=== PATIENT | male | born 1965 | race Caucasian/White ===

== ENCOUNTER 2020-03-23 18:46 | Inpatient (IN) | payer OTHER ==
[~2020-03-23] VITALS: Ht 182.9 cm; Wt 101.6 kg
[2020-03-23 21:56] VITALS: BP 129/95
[2020-03-23 22:15] VITALS: BP 129/95
--- NOTE | 2020-03-23 22:15 | NUR ---
ETHANOL OPERATIONS MANAGERWORK ORDER SORTING CLERK NOTES PATIENT DIRECTLY ADMITTED FROM [facility] FOR CARDIAC CATH PROCEDURE IN AM. PATIENT'S RAPID COVID TEST NEGATIVE; RESULTS FOUND IN CHART. PATIENT ARRIVED VIA GURNEY IN STABLE CONDITION. A/OX4. ABLE TO VERBALIZE NEEDS. TELE MONITOR READING NSR, HEART RATE 93. IV PRESENT ON LEFT HAND, SIZE 20, INTACT & PATENT, HEP LOCKED. STABLE ON RA. PATIENT DENIES PAIN OR SOB; BREATHING IS EVEN AND UNLABORED. NON-PITTING EDEMA NOTED ON PATIENT BILATERAL LOWER LEGS. BELONGINGS REVIEWED WITH PATIENT; POCKET KNIFE CONFISCATED AND PLACED IN SAFE. HOME MEDS RECONCILED AND WILL BE GIVEN TO PHARMACY IN THE AM. MRSA SWAB COMPLETED. CENTRAL OFFICE MECHANIC BOBBIN DISKER, YVAN HURLEY, MADE AWARE OF ADMISSION; AWAITING ORDERS. SAFETY MEASURES IN PLACE AND PATIENT'S NEEDS MET. WILL CONTINUE TO MONITOR.
[2020-03-23] MEDS: LOSARTAN POTASSIUM 25 MG TABLET PO SCH (23:00)
[2020-03-23] MEDS: CARVEDILOL 6.25 MG TABLET PO SCH (23:00)
[2020-03-23] MEDS ORDERED: FUROSEMIDE 40 MG/4 ML VIAL IV ONE (23:00)
[2020-03-23] MEDS ORDERED: ZOLPIDEM TARTRATE 5 MG TABLET PO PRN (23:30)
[2020-03-23] MEDS ORDERED: MAG HYDROX/AL HYDROX/SIMETH 30 ML UDC PO PRN (23:30)
[2020-03-23] MEDS ORDERED: MAGNESIUM HYDROXIDE 30 ML UDC PO PRN (23:30)
[2020-03-23] MEDS ORDERED: MORPHINE SULFATE INJ 2 MG/ML DISP.SYRIN IV PRN (23:30)
[2020-03-23] MEDS ORDERED: Z GUARD REMEDY 2 OZ OINT TP PRN (23:30)
[2020-03-23] MEDS ORDERED: ACETAMINOPHEN 325 MG TABLET PO PRN (23:30)
[2020-03-23] MEDS ORDERED: ONDANSETRON HCL/PF 4 MG/2 ML VIAL IVP PRN (23:30)
[2020-03-24] VITALS (11 sets, daily range): BP systolic 100–146; BP diastolic 65–101
[2020-03-24] MEDS ORDERED: ASPI-1169 PO (03:36)
[2020-03-24] MEDS ORDERED: FURO40TA5 PO (03:36)
[2020-03-24] MEDS ORDERED: LOSA25TA27 PO (03:36)
[2020-03-24] MEDS ORDERED: RIVA10TA PO (03:36)
[2020-03-24] MEDS ORDERED: NITR0.4T48 SL (03:36)
[2020-03-24] MEDS ORDERED: SPIR25TA6 PO (03:36)
[2020-03-24] MEDS ORDERED: CARV6.252 PO (03:36)
[2020-03-24 04:41] LABS: BASOPHILS # (AUTO) 0.1 /CMM (0.0-0.2); BASOPHILS % (AUTO) 0.9 % (0.0-2.0); EOSINOPHILS % (AUTO) 2.5 % (0.0-6.0); HEMATOCRIT 45 % (39-51); HEMOGLOBIN 14.6 g/dL (13.5-17.5); LYMPHOCYTES # (AUTO) 2.6 /CMM (0.8-4.8); LYMPHOCYTES % (AUTO) 41.7 % (20.0-44.0); MEAN CORPUSCULAR HGB CONC 32 g/dl (31.0-36.0); MEAN CORPUSCULAR VOLUME 87 fL (80-96); MONOCYTES # (AUTO) 0.8 /CMM (0.1-1.30); MONOCYTES % (AUTO) 12.3 % (2.0-12.0); NEUTROPHILS # (AUTO) 2.7 /CMM (1.8-8.9); NEUTROPHILS % (AUTO) 42.6 % (43.0-81.0); PLATELET COUNT (AUTO) 338 /CMM (150-450); RED BLOOD CELL COUNT(AUTO) 5.23 MIL/uL (4.5-6.0); WHITE BLOOD COUNT (AUTO) 6.3 K/uL (4.3-11.0)
[2020-03-24 04:50] LABS: CALCIUM, SERUM 8.2 mg/dL (8.5-10.1); CREATININE 1.2 mg/dL (0.6-1.3); MAGNESIUM 1.8 mg/dL (1.8-2.4); PHOSPHORUS 4.7 mg/dL (2.5-4.9); POTASSIUM 3.5 mmol/L (3.5-5.1)
[2020-03-24] MEDS ORDERED: IODIXANOL 320MG/ML 100 ML IV ONE (05:53)
[2020-03-24] MEDS ORDERED: IV NS 0.9% 1,000 ML ONE (05:53)
[2020-03-24] MEDS ORDERED: IV NS 0.9% 50 ML IV ONE (05:53)
[2020-03-24] MEDS ORDERED: NITROGLYCERIN ICAR 1,000 MCG/10 ML VIAL ICAR ONE (05:54)
[2020-03-24] MEDS ORDERED: VERAPAMIL HCL IV 5 MG/2 ML VIAL ONE (05:54)
[2020-03-24] MEDS ORDERED: IV SET PRIMARY 1 EA INFUS.SET MC ONE (05:58)
[2020-03-24] MEDS ORDERED: LIDOCAINE HCL/PF 1% 30 ML SDV ONE (06:00)
--- NOTE | 2020-03-24 06:15 | NUR ---
TRUCK DOCK MATERIAL MOVER NOTES PATIENT SENT TO [facility] FOR PROCEDURE. CONSENT FORMS VERIFIED
[2020-03-24] MEDS ORDERED: MIDAZOLAM HCL 2 MG/2ML VIAL ONE (06:41)
[2020-03-24] MEDS ORDERED: FENTANYL PF 100MCG/2ML AMPUL ONE (06:41)
[2020-03-24] MEDS ORDERED: HEPARIN SODIUM, PORCINE 1,000 UNIT/ML VIAL ONE (06:47)
--- NOTE | 2020-03-24 07:16 | NUR ---
COMPENSATION INTERN CLOSING NOTES PATIENT IN PROCEDURE FOR CARDIAC CATH. ENDORSED TO DAY SHIFT RN PLAN OF CARE.
--- NOTE | 2020-03-24 08:29 | NUR ---
Recovery starten in Tilt Wall Supervisor room at 0730; with TR Band intact; Pt AAOx4; denies CP and SOB at thios time; SR on tube cleaner
--- NOTE | 2020-03-24 08:37 | NUR ---
TR band intact, at 0817 air release initiated. at 0837 TR Band fully out. R radial Heart cath site intact; pt instructed to monitor for bleeding and heart cath precautions; and to avoid or limit use. Report given to Sweetie MONROY at 0845 off to 304-2 via [employer] Network[employer]ristin/Zulu monitor
--- NOTE | 2020-03-24 08:59 | NUR ---
REHABILITATION INSPECTOR NOTES RECEIVED PT FROM SUPERVISOR ORDNANCE TRUCK INSTALLATION PORFIRIO HAMMOND VIA REDDY, PT IS AWAKE, ALERT AND ORIENTED, NO COMPLAINT OF PAIN, BREATHING PATTERN NORMAL, ABLE TO TRANSFER TO BED WITH STANDBY ASSISTANCE, NO BLEEDING NOTED TO RIGHT WRIST TR BAND SITE, DRESSING DRY AND INTACT, POST PROCEDURE ORDERS NOTED, PT INFORMED, VITALS TAKEN, BREAKFAST SERVED, WILL COINTINUE TO MONITOR.
[2020-03-24] MEDS: LOSARTAN POTASSIUM 25 MG TABLET PO SCH ×2 (09:40→16:40)
[2020-03-24] MEDS: ASPIRIN 81 MG TAB.CHEW PO SCH (09:41)
[2020-03-24] MEDS: CARVEDILOL 6.25 MG TABLET PO SCH ×2 (09:41→16:41)
[2020-03-24] MEDS: SPIRONOLACTONE 25 MG TABLET PO SCH (09:42)
[2020-03-24] MEDS ORDERED: MAGN400O6 PO (09:48)
[2020-03-24] MEDS ORDERED: MORP2VIA IV (09:48)
[2020-03-24] MEDS ORDERED: ALLA266C2 TP (09:48)
[2020-03-24] MEDS ORDERED: HYDR-4384 PO (09:48)
[2020-03-24] MEDS ORDERED: PANT40TA2 PO (09:48)
[2020-03-24] MEDS ORDERED: ONDA4VIA52 IV (09:48)
[2020-03-24] MEDS ORDERED: ACET-868 PO (09:48)
--- NOTE | 2020-03-24 13:00 | NUR ---
PIPE SUPERVISOR NOTES PT IN BED, AWAKE, ALERT AND ORIENTED, NO COMPLAINT OF PAIN OR ANY DISCOMFORT, ATE LUNCH WITH GOOD APPETITE, VS TAKEN AND RECORDED, VS WNL, PT SEEN BY DR. JULES, INFORMED OF PLAN OF CARE AND PLAN FOR TRANSFER TO ANOTHER HOSPITAL FOR POSSIBLE CABG, VERBALIZED UNDERSTANDING.
[2020-03-24 16:23] LABS: CHOLESTEROL 163 mg/dL (<200); HDL CHOLESTEROL 31 mg/dL (40-60); LDL 130 mg/dL (0-99); TRIGLYCERIDES 73 mg/dL (30-150)
--- NOTE | 2020-03-24 18:11 | NUR ---
STENCILER CLOSING NOTES Patient remains alert and oriented x4. Respiration is even and easy with no shortness of breath. No complain of pain or discomfort. Carotid Doppler Studies done as ordered. MD aware. All due medications given as ordered with no side effect. Remains to independent with bowel, bladder and ambulating. Kept safe and comfortable at all times.
--- NOTE | 2020-03-24 19:30 | NUR ---
TELE/RN OPENING NOTES RECEIVED PATIENT RESTING IN BED. PATIENT IS ALERT AND ORIENTED X 4. PATIENT STATES NO PAIN AT THIS TIME. NO SIGNS OF SOB OR RESPIRATORY DISTRESS NOTED. PATIENT ON ROOM AIR TOLERATING WELL, NO LABORED BREATHING NOTED. PATIENT TELE READING SR 80'S. PATIENT HAS IV ACCESS IN LEFT WRIST INTACT G #20. SAFETY MEASURES ARE IN PLACE, BED IS LOCKED AND PLACED IN THE LOW POSITION, SIDE RAILS UP X 2. CALL LIGHT IS WITHIN REACH. WILL CONTINUE TO MONITOR PATIENT THROUGH OUT SHIFT.
[2020-03-24] MEDS ORDERED: ENOXAPARIN SODIUM 100 MG/ML DISP.SYRIN SQ SCH (21:00)
[2020-03-24] MEDS: ENOXAPARIN SODIUM 100 MG/ML DISP.SYRIN SQ SCH (21:01)
[2020-03-24] MEDS: ATORVASTATIN 40 MG TABLET PO SCH (21:08)
[2020-03-25] VITALS: BP 131/78
[2020-03-25 04:00] VITALS: BP 145/93
--- NOTE | 2020-03-25 06:20 | NUR ---
TELE/RN CLOSING NOTES PATIENT RESTING IN BED. PATIENT IS ALERT AND ORIENTED X 4. PATIENT STATES NO PAIN AT THIS TIME. PATIENT IS ABLE TO AMBULATE TO RESTROOM. NO SIGNS OF SOB OR RESPIRATORY DISTRESS NOTED. PATIENT ON ROOM AIR TOLERATING WELL, NO LABORED BREATHING NOTED. PATIENT TELE READING SR 95 BPM. PATIENT HAS IV ACCESS IN LEFT WRIST INTACT G #20. ALL PATIENT NEEDS HAVE BEEN MET DURING SHIFT. SAFETY MEASURES ARE IN PLACE, BED IS LOCKED AND PLACED IN THE LOW POSITION, SIDE RAILS UP X 2. CALL LIGHT IS WITHIN REACH. WILL ENDURES CARE TO DAY SHIFT.
[2020-03-25 07:13] LABS: ALBUMIN 2.6 g/dL (3.4-5.0); BILIRUBIN,TOTAL 0.7 mg/dL (0.2-1.0); CALCIUM, SERUM 8.6 mg/dL (8.5-10.1); CREATININE 1.1 mg/dL (0.6-1.3); MAGNESIUM 2.2 mg/dL (1.8-2.4); TOTAL PROTEIN, SERUM 6.1 g/dL (6.4-8.2)
[2020-03-25 07:20] LABS: BASOPHILS # (AUTO) 0.1 /CMM (0.0-0.2); BASOPHILS % (AUTO) 0.9 % (0.0-2.0); EOSINOPHILS % (AUTO) 2.6 % (0.0-6.0); HEMATOCRIT 45 % (39-51); HEMOGLOBIN 14.6 g/dL (13.5-17.5); LYMPHOCYTES # (AUTO) 2.5 /CMM (0.8-4.8); LYMPHOCYTES % (AUTO) 44.4 % (20.0-44.0); MEAN CORPUSCULAR HGB CONC 33 g/dl (31.0-36.0); MEAN CORPUSCULAR VOLUME 87 fL (80-96); MONOCYTES # (AUTO) 0.6 /CMM (0.1-1.30); MONOCYTES % (AUTO) 10.2 % (2.0-12.0); NEUTROPHILS # (AUTO) 2.4 /CMM (1.8-8.9); NEUTROPHILS % (AUTO) 41.9 % (43.0-81.0); PLATELET COUNT (AUTO) 318 /CMM (150-450); RED BLOOD CELL COUNT(AUTO) 5.17 MIL/uL (4.5-6.0); WHITE BLOOD COUNT (AUTO) 5.7 K/uL (4.3-11.0)
[2020-03-25 08:00] VITALS: BP 131/88
[2020-03-25 08:08] LABS: POTASSIUM 3.8 mmol/L (3.5-5.1)
[2020-03-25] MEDS: LOSARTAN POTASSIUM 25 MG TABLET PO SCH ×2 (08:16→16:23)
[2020-03-25] MEDS: ASPIRIN 81 MG TAB.CHEW PO SCH (08:16)
[2020-03-25] MEDS: FUROSEMIDE 40 MG TABLET PO SCH (08:16)
[2020-03-25] MEDS: CARVEDILOL 6.25 MG TABLET PO SCH ×2 (08:16→16:23)
[2020-03-25] MEDS: SPIRONOLACTONE 25 MG TABLET PO SCH (08:16)
[2020-03-25] MEDS: ENOXAPARIN SODIUM 100 MG/ML DISP.SYRIN SQ SCH ×2 (08:17→21:15)
[2020-03-25 11:56] VITALS: BP 122/95
--- NOTE | 2020-03-25 18:27 | NUR ---
REGULATORY COMPLIANCE OFFICER END OF SHIFT SUMMARY PT IS A/OX4, AFEBRILE. CARDIAC-MONITORED, NSR. VSS. STABLE ON RA. RESPIRATIONS ARE EVEN AND UNLABORED, NOT IN ANY ACUTE DISTRESS NOTED. PT DENIES ANY PAIN, SOB, N/V. ABDOMEN IS SOFT AND NONDISTENDED, BOWEL SOUNDS ARE PRESENT. X1 BM DURING SHIFT. VOIDS. CONTINENT. AMBULATORY. SKIN INTACT. PIV SL. ALL NEEDS MET AND RENDERED. SAFETY MEASURES ARE IN PLACE. CALL LIGHT IS LEFT WITHIN REACH. WILL MONITOR AND CONTINUE POC.
--- NOTE | 2020-03-25 19:45 | NUR ---
TELE/RN OPENING NOTES RECEIVED PATIENT RESTING IN BED. PATIENT IS ALERT AND ORIENTED X 4. PATIENT STATES NO PAIN AT THE MOMENT. NO SIGNS OF SOB OR RESPIRATORY DISTRESS NOTED. BREATHING IS EVEN AND UNLABORED. PATIENT IS ABLE TO AMBULATE TO RESTROOM BY SELF. TELE READING SR. PATIENT HAS IV ON LEFT HAND #20 G INTACT AND FLUSHING WELL. SAFETY MEASURES ARE IN PLACE, BED IS LOCKED AND PLACED IN THE LOWEST POSITION. CALL LIGHT IS WITHIN IN REACH, PATIENTS BEDSIDE TABLE IS WITHIN REACH. SIDE RAILS UP X 2. WILL CONTINUE TO MONITOR PATIENT THROUGH OUT SHIFT.
[2020-03-25 20:00] VITALS: BP 136/69
[2020-03-25] MEDS: ATORVASTATIN 40 MG TABLET PO SCH (21:13)
--- NOTE | 2020-03-25 23:45 | NUR ---
RETAIL VISUAL MERCHANDISER/ NOTES RECEIVED CALL FROM [facility]. INFORMED THAT PATIENT NEEDS A COVID TEST WITHIN THE PASS THREE DAYS TO BE TRANSFERRED ON THE 03/26/20. DISTRICT CAPTAIN YVAN NOTIFIED AND ORDERED FOR RAPID COVID TEST.
[2020-03-25 23:58] VITALS: BP 141/95
--- NOTE | 2020-03-26 00:05 | NUR ---
TELE/RN NOTES RAPID COVID TEST SWAB COLLECTED FROM PATIENT AND BROUGHT TO LAB.
[2020-03-26 04:00] VITALS: BP 131/92
--- NOTE | 2020-03-26 06:15 | NUR ---
TELE/RN CLOSING NOTES PATIENT RESTING IN BED. PATIENT IS ALERT AND ORIENTED X 4. PATIENT STATES NO PAIN AT THE MOMENT. NO SIGNS OF SOB OR RESPIRATORY DISTRESS NOTED. BREATHING IS EVEN AND UNLABORED. PATIENT IS ABLE TO AMBULATE TO RESTROOM BY SELF. TELE READING SR 90S. PATIENT HAS IV ON LEFT HAND #20 G INTACT AND FLUSHING WELL. PATIENT RAPID COVID TEST ON 03/26/20 IS NEGATIVE. ALL PATIENTS NEEDS HAVE BEEN MET DURING SHIFT. SAFETY MEASURES ARE IN PLACE, BED IS LOCKED AND PLACED IN THE LOWEST POSITION. CALL LIGHT IS WITHIN IN REACH, PATIENTS BEDSIDE TABLE IS WITHIN REACH. SIDE RAILS UP X 2. WILL ENDORSE CARE TO DAY SHIFT.
--- NOTE | 2020-03-26 07:20 | NUR ---
rn notes patient received on room air, no sob noted, a/o x4, denies chest pain at this time. L hand 20 present. Rapid covid as of a few hours ago today is NEGATIVE. plan is to transfer to [place] and have surgery on Tuesday 03/27 for a CABG. Bed at the lowest setting, call light within reach, side rails up x2.
[2020-03-26 08:00] VITALS: BP 140/97
[2020-03-26] MEDS: LOSARTAN POTASSIUM 25 MG TABLET PO SCH (08:11)
[2020-03-26] MEDS: SPIRONOLACTONE 25 MG TABLET PO SCH (08:11)
[2020-03-26 08:12] VITALS: BP 140/97
[2020-03-26] MEDS: CARVEDILOL 6.25 MG TABLET PO SCH (08:12)
[2020-03-26] MEDS: FUROSEMIDE 40 MG TABLET PO SCH (08:12)
[2020-03-26] MEDS: ASPIRIN 81 MG TAB.CHEW PO SCH (08:12)
[2020-03-26] MEDS: ENOXAPARIN SODIUM 100 MG/ML DISP.SYRIN SQ SCH (08:13)
--- NOTE | 2020-03-26 15:53 | NUR ---
dc notes pt transferred to [place], no belonging is missing, no sob noted, VSS, no chest pain stated. Taken by ambulance. All of his medications with him.
== END 2020-03-26 16:15 | disposition short-term general hospital (02) | DRG 190 ==
LOC: TELE 22:11
PROVIDERS: ADMIT Nurse Practitioner Acute Care; ATTEND Internal Medicine
PROC: B2161ZZ Fluoroscopy of Right and Left Heart using Low Osmolar Contrast (ICD-10-PCS; principal; 2020-03-24)
PROC: 4A023N7 Measurement of Cardiac Sampling and Pressure, Left Heart, Percutaneous Approach (ICD-10-PCS; principal; 2020-03-24)
DX: I25.10 Atherosclerotic heart disease of native coronary artery without angina pectoris (principal); I21.4 Non-ST elevation (NSTEMI) myocardial infarction; I50.23 Acute on chronic systolic (congestive) heart failure; N17.0 Acute kidney failure with tubular necrosis; Z59.0 Homelessness; R74.0 Nonspecific elevation of levels of transaminase and lactic acid dehydrogenase [LDH]; F17.200 Nicotine dependence, unspecified, uncomplicated; F19.10 Other psychoactive substance abuse, uncomplicated; I25.5 Ischemic cardiomyopathy; K76.1 Chronic passive congestion of liver; I11.0 Hypertensive heart disease with heart failure
CPT/HCPCS: 36415; 80048-TC; 80053-TC; 80061-TC; 83735-TC; 84100-TC; 85025-TC; 87081-TC; 93307-TC; 93880-TC; A4216; C1887; G0378; G0500; J1644; J1650; J1940; J2250; J3010; J3490

== ENCOUNTER 2020-04-16 18:51 | Inpatient (IN) | payer OTHER ==
[~2020-04-16] VITALS: Ht 182.9 cm; Wt 110.7 kg
[~2020-04-16 18:51] MED LIST: ACET-868 GT; ALLA266C2 TP; ASPI-1169 GT; CARV6.252 GT; FURO40TA5 GT; HYDR-4384 GT; LOSA25TA27 GT; MAGN400O6 GT; MORP2VIA IV; NITR0.4T48 SL; ONDA4VIA52 IV; PANT40TA2 GT; RIVA10TA GT; SPIR25TA6 GT
[2020-04-17] VITALS (24 sets, daily range): BP systolic 96–132; BP diastolic 65–91
--- NOTE | 2020-04-17 00:15 | NUR ---
SAW EDGE FUSER CIRCULAR NOTES CALLED AND SPOKE TO DR FRYE TO NOTIFY REGARDING PATIENT ARRIVAL FROM [facility]. PER DR FRYE, SHE WAS NOT AWARE THAT THIS PATIENT WAS COMING TO [facility]. CALLED AND SPOKE TO SHREDDED FILLER CIGAR MAKER MACHINE EVAN TO NOTIFY REGARDING THE CURRENT SITUATION. PER DR FRYE, SHE WILL COME TO ASSESS THE PATIENT AND PLACE ORDERS. DR FRYE NOTIFIED THAT THE PATIENT IS CURRENTLY ON DIPRIVAN DRIP. PER DR FRYE, CONTINUE DIPRIVAN DRIP. WILL CONTINUE DIPRIVAN DRIP AND MONITOR CLOSELY
--- NOTE | 2020-04-17 01:00 | NUR ---
PT WAS BROUGHT IN ON ON [facility] VENT WITH SHILEY 8 DCT TRACH. PER LEAD MINER BLASTING VENT SETTINGS ARE AC 16, 600, 30%, PEEP +5. PT PLACED ON VENT AT THIS TIME. SUCTIONED MODERATE AMOUNT OF WHITE/YELLOW THICK SECRETIONS. VENT PLUGGED INTO RED OUTLET. ALARMS ARE ON AND AUDIBLE. AMBU BAG AT BEDSIDE. NO RESP DISTRESS NOTED AT THIS TIME. Addendum: 04/17/[address] RT Amended: Links added.
[2020-04-17] MEDS: PROPOFOL 100 ML IV PRN ×2 (01:55→06:07)
--- NOTE | 2020-04-17 01:55 | NUR ---
GEOPHYSICAL ENGINEER NOTES MARGARET MANUALLY SCANNED, UNABLE TO SCAN BARCODE, CONTINUED ORDERED AT 40MCG/KG/MIN
[2020-04-17] MEDS ORDERED: MAGNESIUM HYDROXIDE 30 ML UDC PO PRN (02:00)
[2020-04-17] MEDS ORDERED: ONDANSETRON HCL/PF 4 MG/2 ML VIAL IVP PRN (02:00)
[2020-04-17] MEDS ORDERED: HYDROCODONE/APAP 5/325MG TABLET PO PRN (02:00)
[2020-04-17] MEDS ORDERED: Z GUARD REMEDY 2 OZ OINT TP PRN ×2 (02:00)
[2020-04-17] MEDS ORDERED: ZOLPIDEM TARTRATE 5 MG TABLET PO PRN (02:00)
[2020-04-17] MEDS ORDERED: ACETAMINOPHEN 325 MG TABLET PO PRN ×2 (02:00)
[2020-04-17] MEDS ORDERED: MAG HYDROX/AL HYDROX/SIMETH 30 ML UDC PO PRN (02:00)
--- NOTE | 2020-04-17 05:59 | NUR ---
END OF SHIFT NO CHANGES NOTED IN PT STATUS ALL SHIFT. PT REMAINS TRACHED ON VENT. VENT AND ALARMS WELL FUNCTIONING WITH AMBU BAG AT BEDSIDE. SX PRN MOD BLOOD YELLOW SECRETIONS. NO DISTRESS NOTED.
--- NOTE | 2020-04-17 06:54 | NUR ---
RN NOTES 0100 AM - RECEIVED DIRECT ADMIT PATIENT FROM [facility] DIAGNOSED W/ RESP. FAILURE AND S/P CABG. PATIENT HAS TRACH SHILEY 8 WITH VENT SETTING AC 16, TV 600 FIO2 30% AND PEEP [address] WITH INVERTED T WAVE AND BBB ON TELE MONITOR. RECEIVED WITH DIPRIVAN AT 30 MCG/KG/MIN PATIENT LEGS MOVES A LOT TITRATED PROPOFOL PROTOCOL. HAD S/P CABG AND THROMBECTOMY WITH RIGHT FEMORAL FASCIOTOMY, WITH PEG INTACT AND PATENT. IV SITE ON SONY DOUBLE LUMEN CATH, [facility] HD CATH. MULTIPLE WOUNDS PRESENT PHOTO TAKEN. PATIENT RECTAL TUBE INTACT AND PATENT WITH LIQUID DARK BROWN STOOL. KEPT PT CLEAN AND DRY. 0700 AM - PATIENT REMAINED STABLE WITH TRACH AND VENT TOLERATE WELL. NO SIGNIFICANT CHANGES THROUGHOUT THE SHIFT. AFEBRILE. INCONTINENT CARE RENDERED. ENDORSED CONTINUITY OF CARE TO M NURSE.
[2020-04-17 06:58] LABS: CALCIUM, SERUM 8.2 mg/dL (8.5-10.1); CREATININE 6.3 mg/dL (0.6-1.3); POTASSIUM 3.8 mmol/L (3.5-5.1)
--- NOTE | 2020-04-17 07:30 | NUR ---
RN NOTES RECEIVED PATIENT SEDATED WITH DIPRIVAN AT 40MCG/KG/MIN. BREATHING UNLABORED. TRACH TUBE AT MIDLINE. TOLERATING CURRENT VENT SETTINGS WELL. SATING AT 98-100%. SINUS RHYTHM ON THE MONITOR WITH HR ON THE 80s. DOUBLE LUME PICC ON THE SONY IN PACE, FLUSHING WELL, DRESSING IN PLACE, CLEAN AND DRY. BILATERAL SOFT RESTRAINTS IN PLACE, REMOVED AND REPLACED FOR SKI ASSESSMENT. NO SKIN ISSUES NOTED AT THIS TIME. GT IN PLACE, PLACEMENT VERIFIED THROUGH AUSCULTATION, NO GASTRIC RESIDUAL NOTED. SCROTAL SWEELING NOTED. BILATERAL LEG SWELLING NOTED. HOB ELEVATED FOR SAP. SAFETY MEASURES ENSURED IN PLACE. CALL LIGHT PLACED WITHIN REACH. WILL CONTINUE TO MONITOR PATIENT ACCORDINGLY
--- NOTE | 2020-04-17 07:45 | NUR ---
RT PATIENT REC'D TRACHED ON [facility] VENT WITH ORDERED SETTINGS MERISSA WELL. PATIENT APPEARS COMFORTABLE AND IN NO DISTRESS. NIDAU BAG AT HOB. CONT CURRENT PLAN OF CARE. Addendum: 04/18/20 at 1208 by ERIC CONNELL RT Amended: Links added.
[2020-04-17 08:24] LABS: ABG BASE EXCESS -1.9 mmol/L; ABG PCO2 27.6 mmHg (35.0-45.0); ABG PH 7.497 (7.350-7.450); ABG PO2 87.5 mmHg (75.0-100.0); COHb 1.2 % (0.5-1.5); MetHb 0.3 % (0.0-1.5); O2Hb 95.5 % (94.0-97.0); SITE, ABG Right Radial; VENT MODE, BG AC 16 600 30% +5
[2020-04-17 08:29] LABS: BASOPHILS # (AUTO) 0.1 /CMM (0.0-0.2); BASOPHILS % (AUTO) 0.7 % (0.0-2.0); EOSINOPHILS % (AUTO) 1.3 % (0.0-6.0); HEMATOCRIT 22 % (39-51); HEMOGLOBIN 7.2 g/dL (13.5-17.5); LYMPHOCYTES # (AUTO) 1.1 /CMM (0.8-4.8); LYMPHOCYTES % (AUTO) 7.3 % (20.0-44.0); MEAN CORPUSCULAR HGB CONC 33 g/dl (31.0-36.0); MEAN CORPUSCULAR VOLUME 92 fL (80-96); MONOCYTES # (AUTO) 1.4 /CMM (0.1-1.30); MONOCYTES % (AUTO) 9.7 % (2.0-12.0); NEUTROPHILS # (AUTO) 11.7 /CMM (1.8-8.9); PLATELET COUNT (AUTO) 446 /CMM (150-450); RED BLOOD CELL COUNT(AUTO) 2.43 MIL/uL (4.5-6.0); WHITE BLOOD COUNT (AUTO) 14.5 K/uL (4.3-11.0)
[2020-04-17 08:40] LABS: ALBUMIN 1.7 g/dL (3.4-5.0); BILIRUBIN,TOTAL 0.8 mg/dL (0.2-1.0); CALCIUM, SERUM 7.6 mg/dL (8.5-10.1); POTASSIUM 3.9 mmol/L (3.5-5.1); TOTAL PROTEIN, SERUM 6.5 g/dL (6.4-8.2)
[2020-04-17] MEDS: SPIRONOLACTONE 25 MG TABLET PO SCH (08:41)
[2020-04-17] MEDS: PANTOPRAZOLE 40 MG TABLET.DR PO SCH (08:41)
[2020-04-17] MEDS: ASPIRIN 81 MG TAB.CHEW PO SCH (08:41)
[2020-04-17] MEDS: FUROSEMIDE 40 MG TABLET PO SCH ×2 (08:42→17:08)
[2020-04-17] MEDS: CARVEDILOL 6.25 MG TABLET PO SCH ×2 (08:43→17:08)
[2020-04-17] MEDS: LOSARTAN POTASSIUM 25 MG TABLET PO SCH ×2 (08:43→17:08)
[2020-04-17] MEDS ORDERED: RIVAROXABAN 10 MG TABLET PO SCH (09:00)
--- NOTE | 2020-04-17 09:21 | NUR ---
WOUND CARE CONSULT: PT JUST HAD PROCEDURE AND NEEDS REST AT THIS TIME PER RN. NO SKIN ASSESSMENT YET BY PORCELAIN TECHNICIAN DUE TO PT NEED FOR REST. REVIEWED CHART, NURSING DOCUMENTATION AND PHOTOS WHICH INDICATE OPEN SURGICAL WOUNDS TO LEGS WELL INCISIONS TO GROIN, ANKLE AND THIGHS, PRESENT ON ADMISSION. RECOMMEND SURGICAL AND DPM CONSULTS. DR BORRERO AND DR GARCAI NOTIFIED OF CONSULT REQUESTS. FIRST STEP LOW AIRLOSS MATTRESS IS ON ORDER. RECOMMENDATIONS MADE FOR SKIN PROTECTION. DISCUSSED WITH NURSING STAFF. MD IN AGREEMENT WITH PLAN OF CARE.
--- NOTE | 2020-04-17 09:30 | NUR ---
RN NOTES SEEN AND EXAMINED BY DR. RIGGINS. UPDATED ON PATIENT MENTAL STATUS. PER MD, KEEP PATIENT OFF SEDATION LONG HE IS COMFORTABLE
--- NOTE | 2020-04-17 16:36 | NUR ---
1:30 This SW received a phone call from this patients daughter Natalia . Natalia reported to this SW that she previously called [facility] wanting an update on her father. Natalia was informed that the patient was transferred to [facility]. Patients daughter informed this SW that Natalia was the primary contact for this patient at [facility]. Natalia then informed this SW that the patient was scheduled for a surgery, Natalia spoke with a Doctor and SW at [facility] but could not remember their names. Natalia would like to FaceTime with the patient and Natalia informed this SW that she had already notified the [facility] & president of this request. Natalia stated that she and patients father agreed that Natalia would make decisions regarding this patient. Natalia also informed this SW that she is a caregiver and she would know how to take care of her father if necessary. This SW to remain available for all needs regarding this patient.
[2020-04-17] MEDS: SILVER SULFADIAZINE CREAM 25 GM TUBE TP SCH (17:07)
[2020-04-17] MEDS: HYDROCODONE/APAP 5/325MG TABLET PO PRN (17:32)
[2020-04-17] MEDS: NEPRO 1,000 ML BOTTLE GT PRN (18:26)
--- NOTE | 2020-04-17 18:30 | NUR ---
RN NOTES PATIENT WITH NO SIGNIFICANT CHANGES WITHIN THE SHIFT. NOT ON ANY FORM OF DISTRESS. NO SHORTNESS OF BREATH NOTED. ALL NURSING NEEDS ATTENDED MET. SAFETY MEASURES IN PLACE AT ALL TIMES. CALL LIGHT WITHIN REACH.
--- NOTE | 2020-04-17 22:10 | NUR ---
RECEIVED PT TRACH ON VENT. PT HAS SHLY 8. PT IS AWAKE AND ALERT NO RESP DISTRESS NOTED. SX'D AND LAVAGED FOR MOD AMT OF THICK ROSS SECRETIONS. AMBU BAG AT BEDSIDE AND SPARE TRACH SAME SIZE. VENT ALARMS SET AND AUDIBLE. VENT PLUGGED INTO RED OUTLET. CONTINUE [facility] VENT SUPPORT. Addendum: 04/17/20 at 2212 by KEE AU RT Amended: Links added.
[2020-04-18] VITALS (24 sets, daily range): BP systolic 105–137; BP diastolic 61–90
[2020-04-18 04:25] LABS: BASOPHILS # (AUTO) 0.1 /CMM (0.0-0.2); BASOPHILS % (AUTO) 0.4 % (0.0-2.0); HEMATOCRIT 21 % (39-51); LYMPHOCYTES % (AUTO) 7.1 % (20.0-44.0); MEAN CORPUSCULAR HGB CONC 32 g/dl (31.0-36.0); MEAN CORPUSCULAR VOLUME 92 fL (80-96); MONOCYTES # (AUTO) 1.3 /CMM (0.1-1.30); MONOCYTES % (AUTO) 9.3 % (2.0-12.0); NEUTROPHILS % (AUTO) 82.2 % (43.0-81.0); PLATELET COUNT (AUTO) 454 /CMM (150-450); RED BLOOD CELL COUNT(AUTO) 2.28 MIL/uL (4.5-6.0); WHITE BLOOD COUNT (AUTO) 13.4 K/uL (4.3-11.0)
[2020-04-18 04:36] LABS: CALCIUM, SERUM 7.8 mg/dL (8.5-10.1); CREATININE 6.7 mg/dL (0.6-1.3); MAGNESIUM 2.2 mg/dL (1.8-2.4); PHOSPHORUS 4.9 mg/dL (2.5-4.9); POTASSIUM 3.5 mmol/L (3.5-5.1)
[2020-04-18 05:14] LABS: HEMOGLOBIN 6.8 g/dL (13.5-17.5)
[2020-04-18 05:53] LABS: LYMPHOCYTES % (MANUAL) 7 % (16-48); MONOCYTES % (MANUAL) 7 % (0-11.0); NEUTROPHILS % (MANUAL) 86 (42-76)
--- NOTE | 2020-04-18 06:00 | NUR ---
RN NOTES INFORMED DR. FRYE REGARDING PATIENT HGB 6.8 DROP FROM YESTERDAY OF 7.2 WITH NEW ORDER TO TRANSFUSED 1 UNIT PRBC NOTED AND CARRIED OUT ORDER. PATIENT FIO2 CHANGE TO 40% BY RT TOLERATED WELL.
--- NOTE | 2020-04-18 07:00 | NUR ---
RN NOTES PATIENT REMAINED STABLE. AOX2, FOLLOWS COMMAND. MOUTHING WORDS "WHY AM I HERE?". EXPLAINED PATIENT HIS CONDITION AND PLAN OF CARE , PT STARTED TO CALM DOWN. PATIENT TRACH AND VENT SETTING TOLERATED WELL. AFEBRILE. VSS. INCONTINENT CARE RENDERED. ST ON TELE MONITOR. IV SITE ON SONY INTACT AND PATENT WITH GOOD BLOOD RETURN, BLOOD DRAWN . RIJ DRESSING INTACT AND CLEAN AND DRY. RECTAL TUBE KEPT IN PLACED WITH LOOSE AND PASTY BROWN OUTPUT. ENDORSED TO AM SHIFT TO TRANSFUSE 1 UNIT OF PRBC , WAITED TO RELEASE FROM LAB. KEPT PATIENT CLEAN AND DRY.
[2020-04-18] MEDS: PANTOPRAZOLE 40 MG TABLET.DR PO SCH (07:56)
[2020-04-18 08:57] LABS: IRON, SERUM 46 ug/dl (50-175); TOTAL IRON BINDING CAPACITY 130 ug/dl (250-450)
[2020-04-18] MEDS: APIXABAN 5 MG TABLET PO SCH ×2 (09:00→16:50)
--- NOTE | 2020-04-18 09:00 | NUR ---
RN NOTES APIXABAN NOT GIVEN TO TO SCHEDULE DEBRIDEMENT AND LOW H AND H
[2020-04-18 09:14] LABS: ABG BASE EXCESS -0.5 mmol/L; ABG OXYGEN SATURATION 98.3 % (92.0-98.5); ABG PCO2 31.5 mmHg (35.0-45.0); ABG PH 7.477 (7.350-7.450); ABG PO2 108.7 mmHg (75.0-100.0); AaDO2 140.3 mmHg; COHb 1.1 % (0.5-1.5); MetHb 0.3 % (0.0-1.5); O2Hb 96.9 % (94.0-97.0); SITE, ABG Right Radial
[2020-04-18 09:29] LABS: ABG BASE EXCESS 4.4 mmol/L; ABG PCO2 92.9 mmHg (35.0-45.0); ABG PH 7.206 (7.350-7.450); AaDO2 256.6 mmHg; COHb 2.6 % (0.5-1.5); MetHb 0.3 % (0.0-1.5); O2Hb 89.3 % (94.0-97.0); SITE, ABG Right Radial; VENT MODE, BG cpap 20/5 rr24 60%
[2020-04-18] MEDS: ASPIRIN 81 MG TAB.CHEW PO SCH (09:32)
[2020-04-18] MEDS: LOSARTAN POTASSIUM 25 MG TABLET PO SCH ×2 (09:32→16:48)
[2020-04-18] MEDS: CARVEDILOL 6.25 MG TABLET PO SCH ×2 (09:32→16:49)
[2020-04-18 09:33] LABS: FERRITIN 1765 ng/mL (8-388)
[2020-04-18] MEDS: FUROSEMIDE 40 MG TABLET PO SCH ×2 (09:33→16:49)
[2020-04-18] MEDS: SILVER SULFADIAZINE CREAM 25 GM TUBE TP SCH (09:33)
[2020-04-18] MEDS: SPIRONOLACTONE 25 MG TABLET PO SCH (09:33)
--- NOTE | 2020-04-18 09:55 | NUR ---
rn notes unable;e to document at transfusion tab. blood transfusion initiated. blood verified with Alexis MONROY. Vital signs as follows bp at 115/67, hr at 105, rr at 15, temp at 98.3. sats at 93%. will continue to monitor patient accordingly
[2020-04-18] MEDS: HYDROCODONE/APAP 5/325MG TABLET PO PRN (13:09)
[2020-04-18] MEDS ORDERED: SILVER NITRATE APPLICATOR 1 EA BOX TP ONE (15:00)
--- NOTE | 2020-04-18 17:00 | NUR ---
RN NOTES APIXABAN NOT GIVEN TO TO SCHEDULE DEBRIDEMENT AND LOW H AND H
--- NOTE | 2020-04-18 19:30 | NUR ---
RN NOTES RECEIVED PT AWAKE ALERT ORIENTED X 2-3 ABLE TO MOUTH WORDS. DENIES PAIN. WITH TRACH ON VENT ON CPAP MODE TOLERATED WELL SATURATION, SATURATION >95%. NO ACUTE RESPIRATORY DISTRESS. AFEBRILE. ST W/ BBB AND INVERTED T WAVE ON TELE MONITOR. WITH GTF NEPHRO @ 30 ML/HR INTACT AND PATENT WITH NO RESIDUAL. KEPT HOB ELEVATED. IV SITE ON SONY PICC LINE INTACT AND PATENT FLUSHED WELL WITH GOOD BLOOD RETURN. RIJ HD CATH KEPT CLEAN AND DRY. PATIENT WITH RECTAL TUBE WITH MINIMAL AMT OF PASTY BROWN OUTPUT. WITH GOOD PERIPHERAL PULSES. VSS. KEPT PT CLEAN , REPOSITIONED NEEDS MAXIMUM ASSISTANCE. WILL CONTINUE TO MONITOR.
[2020-04-19] VITALS (21 sets, daily range): BP systolic 112–151; BP diastolic 51–99
[2020-04-19 04:51] LABS: BASOPHILS # (AUTO) 0.1 /CMM (0.0-0.2); BASOPHILS % (AUTO) 0.8 % (0.0-2.0); EOSINOPHILS % (AUTO) 1.8 % (0.0-6.0); HEMATOCRIT 24 % (39-51); HEMOGLOBIN 7.8 g/dL (13.5-17.5); LYMPHOCYTES # (AUTO) 1.3 /CMM (0.8-4.8); LYMPHOCYTES % (AUTO) 9.6 % (20.0-44.0); MEAN CORPUSCULAR HGB CONC 32 g/dl (31.0-36.0); MEAN CORPUSCULAR VOLUME 91 fL (80-96); MONOCYTES # (AUTO) 1.3 /CMM (0.1-1.30); MONOCYTES % (AUTO) 9.6 % (2.0-12.0); NEUTROPHILS # (AUTO) 10.9 /CMM (1.8-8.9); NEUTROPHILS % (AUTO) 78.2 % (43.0-81.0); PLATELET COUNT (AUTO) 488 /CMM (150-450); RED BLOOD CELL COUNT(AUTO) 2.65 MIL/uL (4.5-6.0)
[2020-04-19 05:39] LABS: MAGNESIUM 2.4 mg/dL (1.8-2.4); PHOSPHORUS 5.6 mg/dL (2.5-4.9); POTASSIUM 3.5 mmol/L (3.5-5.1)
[2020-04-19 05:42] LABS: CREATININE 8.1 mg/dL (0.6-1.3)
--- NOTE | 2020-04-19 06:46 | NUR ---
RN NOTES PATIETN REMAINED STABLE. NO APPARENT DISTRESS ON CPAP MODE. NO CHANGE OF MENTAL STATUS. DENIES CHEST PAIN. ,SONY PICC LINE FLUSHED WELL, DRAWN BLOOD WITH GOOD BLOOD RETURN. RIJ KEPT CLEAN AND DRY. GT, PRAKASH CATH AND RECTAL TUBE REMAINED IN PLACE, ALL INTACT AND PATENT. PATIENT INSISTED TO RELEASE FROM RESTRAINT, AND GET UPSET TRIED BUT PATIENT IS HOLDING THE TRACH AND TRIED TO REMOVE SENSOR FOR SATURATION. AFEBRILE. VSS , REPOSITION PT COMFORTABLE. WILL ENDORSED CONTINUITY OF CARE TO AM NURSE.
--- NOTE | 2020-04-19 07:15 | NUR ---
RN INITIAL NOTES RECEIVED PT AWAKE, A/OX2. TRACH IN PLACE. VENT ON CPAP MODE. HOB ELEVATED. NO RESPIRATORY DISTRESS NOTED. NO SIGNS OF PAIN NOTED. PT FOR COOL AEROSOL TRAIL TODAY. TOLERATING TUBE FEEDING WELL. RECTAL TUBE IN PLACE. BLE ELEVATED. FOR WOUND DEBRIDEMENT TODAY. PT COMFORTABLE. WILL MONITOR
[2020-04-19] MEDS: PANTOPRAZOLE 40 MG TABLET.DR PO SCH (08:01)
--- NOTE | 2020-04-19 08:01 | NUR ---
RT PLACED PT ON CA PER MD ORDER, SX WITH MOD THK ROSS SECRETIONS. PT AWAKE AND ALERT. AMBU BAG AND SPARE TRACH NOTED HOB. RN AWARE, WILL CONTINUE TO MONITOR TO. SHIFT.
[2020-04-19] MEDS: ASPIRIN 81 MG TAB.CHEW PO SCH (08:13)
[2020-04-19] MEDS: FUROSEMIDE 40 MG TABLET PO SCH ×2 (08:13→16:27)
[2020-04-19] MEDS: SPIRONOLACTONE 25 MG TABLET PO SCH (08:13)
[2020-04-19] MEDS: CARVEDILOL 6.25 MG TABLET PO SCH ×2 (08:13→16:28)
[2020-04-19] MEDS: LOSARTAN POTASSIUM 25 MG TABLET PO SCH ×2 (08:13→16:28)
[2020-04-19] MEDS: APIXABAN 5 MG TABLET PO SCH ×2 (08:14→16:28)
--- NOTE | 2020-04-19 08:30 | NUR ---
RN NOTES PT PLACED ON COOL AEROSOL, 40% FOR 30MINS. UNABLE TO TOLERATE. PT RR 50S, HR 120S, C/O SOB. DR RIGGINS IN THE UNIT NOTIFIED. PLACED BACK ON CPAP MODE. HOB ELEVATED. WILL CLOSELY MONITOR
[2020-04-19] MEDS: SILVER SULFADIAZINE CREAM 25 GM TUBE TP SCH (09:35)
[2020-04-19] MEDS ORDERED: LEVOFLOXACIN 500 MG /D5W 100ML 500 MG in PREMIX 1 EA IV SCH (10:30)
[2020-04-19] MEDS: HYDROCODONE/APAP 5/325MG TABLET PO PRN ×3 (11:04→23:27)
--- NOTE | 2020-04-19 11:30 | NUR ---
RN NOTES 1030 SEEN BY GERALDINE PERDUE NP. AWARE OF PT'S CURRENT STATUS, LAB VALUES AND CXR RESULT. FOR WOUND DEBRIDEMENT TODAY. WILL MONITOR 1130 RIGHT LATERAL AND MEDIAL LEG DEBRIDEMENT DONE. TX PROVIDED ORDERED. PICTURES TAKEN AND PLACED IN THE CHART. WILL MONITOR
[2020-04-19] MEDS: NEPRO 1,000 ML BOTTLE GT PRN (11:59)
--- NOTE | 2020-04-19 18:30 | NUR ---
RT PT TRANSPORTED TO ROOM 322-2. VENT PLUGGED IN RED OUTLET. AMBU BAG AND SPARE TRACH NOTED HOB. PT PLACED ON CONTINUOUS PULSE OX. NO SOB OR RESP DISTRESS NOTED.
--- NOTE | 2020-04-19 18:41 | NUR ---
RN NOTES PT TRANSFERRED TO ROOM 322-2. PT A/O, ON VENT. NO RESPIRATORY DISTRESS NOTED. NO SOB NOTED. DENIES ANY PAIN. TUBE FEEDING ON. FLEXISEAL IN PLACE. PT CLEAN AND DRY. REPORT GIVEN TO PORFIRIO HERNANDEZ. TOOK OVER PT'S CARE.
--- NOTE | 2020-04-19 19:00 | NUR ---
CLINICAL QUALITY ANALYSTOPEN END SPINNING OPERATOR NOTES RECEIVED PT TRANSFERRED FROM ICU.ON [facility] VENT WITH VENT SETTING ORDERED. CONNECTED TO SUCTION MACHINE AND SUCTIONED THICK YELLOW GREEN SECRETIONS SMALL IN AMOUNT. TRACH CARE DONE. ON TELE HR 115. ABLE TO MAKE SIMPLE NEEDS BY NODDING OR SHAKING HIS HEAD.NON VERBAL. WITH GT FEEDING OF NEPRO RUNNING AT 30 ML/HR TOLERATING WELL. HOB ELEVATED. WITH RECTAL TUBE INTACT DRAINING THICK BROWN. WITH DRESSINGS INTACT ON RT MEDIAL AND RT LATERAL LEG. WITH RT IJ HD CATHETER INTACT AND SONY PICC LINE INTACT WELL.ENDORSED TO COLLECT WOUND C/S OF RLE WOUND TO NIGHT NURSECRISTIAN DURING WOUND DRESSING CHANGE. WITH SURGICAL RENETTA TO RT ANKLE,RT INNER THIGH AND RT GROIN PRESENT WITH NO REDNESS NOTED. ENDORSED TO NIGHT NURSE CARE.
--- NOTE | 2020-04-19 19:50 | NUR ---
SURGEON/PRESIDENT NOTES PATIENT IN BED, ALERT AND ORIENTED X 2. ABLE TO NOD HEAD AND RESPOND TO COMMANDS. BREATHING EVEN AND UNLABORED ON MV TRACH SHILEY 8, CPAP 16, TV 550, FIO2 40%, PEEP5. TELE MONITOR SR/ST. WITH RECTAL TUBE INTACT AND IN PLACE.GTUBE FEEDING NEPRO AT 30ML/HR. NO RESIDUALS. RIJ HD CATH WITH DRESSING INTACT. SONY PICC ITS CLEAN DRY AND INTACT. SHOWS NO SIGNS OF INFILTRATION, NO REDNESS. SAFETY PRECAUTIONS IN PLACE. BED IN LOWEST POSITION, LOCKED, AND CALL LIGHT KEPT WITHIN REACH. WILL CONTINUE TO MONITOR.
[2020-04-19] MEDS ORDERED: GENTAMICIN 140 MG in IV D5W 100 ML IV ONE (20:00)
[2020-04-19] MEDS ORDERED: VANCOMYCIN 1.25 GM in IV D5W 250 ML IV ONE (21:00)
--- NOTE | 2020-04-19 23:27 | NUR ---
MANAGER CLUB NOTES PATIENT GRIMACING OF PAIN. GIVEN NORCO AT 2327. VITAL SIGNS STABLE. WILL CONTINUE TO MONITOR.
--- NOTE | 2020-04-19 23:31 | NUR ---
RT NOTE Pt rec'd trached on mech vent on CPAP mode. Pt shows no signs of resp distress or sob. Trach is patent and secured. Pt awake and alert. Sx'd for thick mod amt of pale yellow secretions. Alarms are set and audible. Ambu bag and emergency spare trach bedside. Vent plugged into red outlet. Will continue to monitor. Addendum: 04/19/20 at 2333 by SANDRA KOROMA RT Amended: Links added.
[2020-04-20] VITALS: BP 120/74
--- NOTE | 2020-04-20 00:35 | NUR ---
RT NOTE Late Entry: Pt rec'd on CPAP mode on [facility] vent. Pt complained of shortness of breath. Pt showed tachypnea, tachycardia, and labored breathing. Pt placed back on AC mode per md orders. Will continue to monitor closely. Addendum: 04/20/20 at 0202 by SANDRA KOROMA RT Amended: Links added.
[2020-04-20 04:00] VITALS: BP 134/82
[2020-04-20 06:37] LABS: BASOPHILS # (AUTO) 0.1 /CMM (0.0-0.2); BASOPHILS % (AUTO) 0.9 % (0.0-2.0); EOSINOPHILS % (AUTO) 2.5 % (0.0-6.0); HEMATOCRIT 24 % (39-51); HEMOGLOBIN 7.8 g/dL (13.5-17.5); LYMPHOCYTES # (AUTO) 1.1 /CMM (0.8-4.8); LYMPHOCYTES % (AUTO) 8.4 % (20.0-44.0); MEAN CORPUSCULAR HGB CONC 33 g/dl (31.0-36.0); MEAN CORPUSCULAR VOLUME 91 fL (80-96); MONOCYTES # (AUTO) 1.5 /CMM (0.1-1.30); MONOCYTES % (AUTO) 11.3 % (2.0-12.0); NEUTROPHILS # (AUTO) 10.2 /CMM (1.8-8.9); NEUTROPHILS % (AUTO) 76.9 % (43.0-81.0); PLATELET COUNT (AUTO) 452 /CMM (150-450); RED BLOOD CELL COUNT(AUTO) 2.63 MIL/uL (4.5-6.0); WHITE BLOOD COUNT (AUTO) 13.2 K/uL (4.3-11.0)
[2020-04-20 06:58] LABS: CALCIUM, SERUM 8.1 mg/dL (8.5-10.1); CREATININE 6.9 mg/dL (0.6-1.3); MAGNESIUM 2.3 mg/dL (1.8-2.4); POTASSIUM 3.3 mmol/L (3.5-5.1)
--- NOTE | 2020-04-20 07:01 | NUR ---
REGISTERED RADIOGRAPHER NOTES PATIENT IN BED, ALERT AND ORIENTED X 2. ABLE TO NOD HEAD AND RESPOND TO COMMANDS. BREATHING EVEN AND UNLABORED ON MV TRACH SHILEY 8, AC 16, TV 550, FIO2 40%, PEEP5. TELE MONITOR SR/ST. WITH RECTAL TUBE INTACT AND IN PLACE. FC INTACT INPLACE. WITH DARK CLOUDY URINE. GTUBE FEEDING NEPRO AT 30ML/HR. NO RESIDUALS. RIJ HD CATH WITH DRESSING INTACT. SONY PICC ITS CLEAN DRY AND INTACT. SHOWS NO SIGNS OF INFILTRATION, NO REDNESS. ALL DUE MECATIONS GIVEN. SAFETY PRECAUTIONS IN PLACE. BED IN LOWEST POSITION, LOCKED, AND CALL LIGHT KEPT WITHIN REACH. WILL ENDORSE TO ONCOMING NURSE.
--- NOTE | 2020-04-20 07:02 | NUR ---
MS RN NOTES PATIENT HAS BILATERAL WRIST RESTRAINTS ON. WITH NO S/S OF POOR CIRCULATION. NO SKIN TEARS.
--- NOTE | 2020-04-20 07:20 | NUR ---
RN OPENING NOTES PATIENT IN BED, ALERT AND ORIENTED X 2. ABLE TO NOD HEAD AND RESPOND TO COMMANDS. NOT IN ANY FORM OF DISTRESS. NO S/S OF PAIN OR DISCOMFORT AT THIS TIME. BREATHING EVEN AND UNLABORED ON MV TRACH SHILEY 8, AC 16, TV 550, FIO2 40%, PEEP5. TELE MONITOR SR/ST. WITH RECTAL TUBE INTACT AND IN PLACE. FC INTACT IN PLACE. WITH DARK CLOUDY URINE. GTUBE FEEDING NEPRO AT 30ML/HR. NO RESIDUALS. RIJ HD CATH WITH DRESSING INTACT. SONY PICC ITS CLEAN DRY AND INTACT. SHOWS NO SIGNS OF INFILTRATION, NO REDNESS. SAFETY PRECAUTIONS IN PLACE. BED IN LOWEST POSITION, LOCKED, AND CALL LIGHT KEPT WITHIN REACH. WILL CONT TO MONIOTR ACCORDINGLY.
[2020-04-20 07:44] LABS: GENTAMICIN,TROUGH 2.9 ug/ml (0.2-2.0)
[2020-04-20 08:00] VITALS: BP 126/92
[2020-04-20] MEDS ORDERED: GENTAMICIN 100 MG in IV D5W 100 ML IV SCH (09:00)
[2020-04-20] MEDS: SPIRONOLACTONE 25 MG TABLET PO SCH (09:10)
[2020-04-20] MEDS: LOSARTAN POTASSIUM 25 MG TABLET PO SCH ×2 (09:10→16:55)
[2020-04-20] MEDS: ASPIRIN 81 MG TAB.CHEW PO SCH (09:10)
[2020-04-20] MEDS: CARVEDILOL 6.25 MG TABLET PO SCH ×2 (09:20→16:52)
[2020-04-20] MEDS: FUROSEMIDE 40 MG TABLET PO SCH ×2 (09:20→16:51)
[2020-04-20] MEDS: APIXABAN 5 MG TABLET PO SCH ×2 (09:21→16:57)
[2020-04-20] MEDS: SILVER SULFADIAZINE CREAM 25 GM TUBE TP SCH (09:23)
[2020-04-20] MEDS: PANTOPRAZOLE 40 MG TABLET.DR PO SCH (09:59)
[2020-04-20] MEDS ORDERED: LEVOFLOXACIN 250 MG /D5W 50 ML 250 MG in PREMIX 1 EA IV SCH (11:00)
[2020-04-20] MEDS: ACETYLCYSTEINE 10% SOLN 400 MG/4 ML VIAL NEB SCH ×3 (11:10→23:21)
[2020-04-20] MEDS: HYDROGEL DRESSING 90 GM TUBE TP SCH (11:58)
[2020-04-20 16:00] VITALS: BP 102/50
--- NOTE | 2020-04-20 17:45 | NUR ---
RN NOTES NOTED PATIENT'S TRACH SITE BLEEDING. APPLIED PRESSURE AND CALLED RT. PER RT, SUTURE CAME OFF. NOTIFIED DR RIGGINS AND DR PERDUE. PER DR RIGGINS, "APPLY PRESSURE DRESSING, IF NOT ENOUGH, ASK ER TO SUTURE".
--- NOTE | 2020-04-20 18:20 | NUR ---
INFORMED RECRUITING INTERNSHIP REGARDING DR RIGGINS'S ORDER TO CALL ER DOCTOR TO SUTURE. 1829: PER RECRUITING INTERNSHIP, ER DOCTOR NOT COMFORTABLE GETTING ORDERS FROM NURSES, ONLY DOCTOR. 1834: CALLED DR PERDUE, AND MADE HER AWARE THAT ER DOCTOR NOT RECEIVING ORDERS FROM NURSES. PER DR PERDUE, SHE WILL CALL TH ER DOCTOR TO SUTURE.
--- NOTE | 2020-04-20 18:36 | NUR ---
RN CLOSING NOTES PATIENT IN STABLE CONDITION. ALL NEEDS ATTENDED AND PROVIDED. SITE STILL BLEEDING, PRESSURE DRESSING APPLIED. AWAITING FOR ER DOCTOR TO COME AND SUTURE THE TRACH SITE. ALL DUE MEDS GIVEN ORDER. KEPT PATIENT SAFE AND COMFORTABLE. BED IN LOW.LOCKED POSITON, SIDERAILS UPX2, CALL LIGHT IN REACH. WILL ENDORSE TO NIGHT RN FOR LUCIE.
[2020-04-20 18:42] LABS: BASOPHILS # (AUTO) 0.1 /CMM (0.0-0.2); BASOPHILS % (AUTO) 0.9 % (0.0-2.0); EOSINOPHILS % (AUTO) 4.3 % (0.0-6.0); HEMATOCRIT 24 % (39-51); HEMOGLOBIN 7.5 g/dL (13.5-17.5); LYMPHOCYTES # (AUTO) 0.9 /CMM (0.8-4.8); MEAN CORPUSCULAR HGB CONC 32 g/dl (31.0-36.0); MEAN CORPUSCULAR VOLUME 92 fL (80-96); MONOCYTES # (AUTO) 1.4 /CMM (0.1-1.30); MONOCYTES % (AUTO) 11.8 % (2.0-12.0); NEUTROPHILS # (AUTO) 8.7 /CMM (1.8-8.9); PLATELET COUNT (AUTO) 460 /CMM (150-450); RED BLOOD CELL COUNT(AUTO) 2.55 MIL/uL (4.5-6.0); WHITE BLOOD COUNT (AUTO) 11.6 K/uL (4.3-11.0)
[2020-04-20] MEDS ORDERED: GELATIN SPONGE,ABSORBABLE 1 SPONGE SPONGE TP ONE ×3 (18:44→21:53)
--- NOTE | 2020-04-20 18:50 | NUR ---
RN NOTES BLEEDING STOPPED AT THIS TIME. DR PERDUE MADE AWARE. ORDERS FOR RT TO PUT SUGICEL/GELFOAM DRESSING AROUND THE STOMA.
--- NOTE | 2020-04-20 19:00 | NUR ---
ELEVATOR STARTER NOTES RECEIVED ON BED,TRACH/VENT,NOTED ACTIVE BLEEDING ON TRACH SITE,PER REPORT,RT NEED TO PUT SURGICELL ON SITE TO STOP BLEEDING.RT WAS PAGE THIS TIME.
--- NOTE | 2020-04-20 19:15 | NUR ---
CUSTOMER SUPPORT SPECIALIST NOTES RT SANDRA BOWENS REY, OLGA, CLARISSA AT BEDSIDE,TRYING TO SUCTION PATIENT AND PUT SURGI CELL ON TRACH SITE.
--- NOTE | 2020-04-20 19:30 | NUR ---
ECONOMIC SPECIALIST NOTES TRACH CARE ALSO DONE BT RT,DRESSING PACKED ON TRACH SITE,WILL MONITOR FOR BLEEDING.
--- NOTE | 2020-04-20 19:30 | NUR ---
CRIME SCENE SPECIALIST NOTES ST 103 ON TELE MONITOR,NOTED WITH PRAKASH CATH DRAINS YELLOWISH URINE,RECTAL TUBE WITH LOOSE BOWEL MOVEMENT, WITH RIGHT INTRA JUGULAR CATH FOR HD TREATMENT.LEFT UPPER ARM PICC LINE FOR MEDS, LOW AIRLOSS MATTRESS FOR SKIN MANAGEMENT.
--- NOTE | 2020-04-20 19:45 | NUR ---
TAPE COATER NOTES NOTED STILL WITH ACTIVE BLEEDING TRACH SITE.HOSPITALIST EDUARDO BAR MADE AWARE,CHARGE NURSE KEM MADE AWARE.
[2020-04-20 20:00] VITALS: BP 129/86
[2020-04-20 20:34] VITALS: BP 129/86
--- NOTE | 2020-04-20 20:53 | NUR ---
RT NOTE PT RECEIVED TRACHED ON MECHANICAL VENTILATION. PT AWAKE/ALERT. SUTURES STILL IN PLACE. BLEEDING NOTED AROUND SUTURE SITE. PORFIRIO FORDE @ BEDSIDE AND IS AWARE. PLACE GAUZE AROUND STOMA SITE AND CLEANED WITH NORMAL SALINE. TRACH JENNIFER/RORY/MACHELLE CHANGED. NO DISTRESS NOTED. CONT. PULSE OX CONNECTED. VENT PLUGGED TO RED OUTLET. ALARMS ON AND AUDIBLE. WILL MONITOR T/O SHIFT. Addendum: 04/20/20 at 2054 by JEFF LARA RT Amended: Links added.
--- NOTE | 2020-04-20 21:30 | NUR ---
RN NOTES: DR BAR CURRENTLY IN THE UNIT, PT TRACHEOSTOMY SITE OOZING WITH FRESH BLOOD, PER MD TO NOTIFY DR JULES. PAGED DR JULES AT [phone], SPOKED OVER THE PHONE, RELAYED SITUATION ABOUT TRACHE, PER MD TELEPHONE ORDER TO HAVE SURGICEL AND SUTURE REMOVAL KIT AVAILABLE AT BEDSIDE, AND HE WILL BE HERE IN FEW MINUTES. ORDER READ BACK, VERIFIED, AND CARRIED OUT.
--- NOTE | 2020-04-20 21:45 | NUR ---
VP COMPLIANCE NOTES DR JULES AT BEDSIDE THIS TIME,TRYING TO FIX THE BLEEDING ON TRACH SITE.
--- NOTE | 2020-04-20 22:00 | NUR ---
SHOPPER INSIGHTS MANAGER NOTES TRACH SITE BLEEDING ABLE TO CONTROLLED BY DR JULES BY SUCTIONING AND PLACING SURGICELL ON TRACH SITE. PATIENT CLEANED AND KEPT DRY AFTER.BILATERAL SOFT WRIST RESTRAINTS APPLIED.WITH EPISODE OF CONFUSION,NOTED, TRYING TO PULL OUT TRACH TUBING.
[2020-04-20] MEDS ORDERED: DESMOPRESSIN 20 MCG in IV NS 0.9% 50 ML IV ONE (22:30)
[2020-04-20] MEDS ORDERED: DESMOPRESSIN 4 MCG/ML AMPUL ONE (23:08)
--- NOTE | 2020-04-20 23:26 | NUR ---
SENIOR DATA DEVELOPER NOTES DESMOPRESSIN 20MCG/5ML IN NS 50ML TO INFUSE OVER 30 MINUTES STARTED, ORDERED BY DR JULES. TO STOP BLEEDING
[2020-04-21] VITALS (20 sets, daily range): BP systolic 103–131; BP diastolic 57–90
--- NOTE | 2020-04-21 | NUR ---
METAL MELTER NOTES DRESSING DONE ON RIGHT LOWER LEG WOUND.
[2020-04-21] MEDS: ACETYLCYSTEINE 10% SOLN 400 MG/4 ML VIAL NEB SCH ×3 (00:47→14:44)
--- NOTE | 2020-04-21 02:16 | NUR ---
REEL AND REWINDER OPERATOR NOTES FIRST UNIT OF PRBC COMPLETED,NO ADVERSE REACTION NOTED,ABLE TO COMMUNICATE WITH MOUTH WORDS. Addendum: 04/21/20 at 0245 by MAURISIO SALCEDO RN ABOVE NOTES FIRST UNIT OF FRESH FROZEN PLASMA NOT PRBC
--- NOTE | 2020-04-21 02:35 | NUR ---
MANAGER OF COMPLIANCE NOTES SECOND UNIT OF FRESH FROZEN PLASMA 212 ML STARTED.
[2020-04-21] MEDS: HYDROCODONE/APAP 5/325MG TABLET PO PRN (03:21)
--- NOTE | 2020-04-21 03:21 | NUR ---
ENTERPRISE RECORDS ANALYST NOTES PAIN MANAGEMENT C/O PAIN ON RIGHT LOWER LEG,MEDICATED WITH NORCO 5/325MG,1 TAB/GT ORDERED.
--- NOTE | 2020-04-21 03:51 | NUR ---
DRAFTER ENGINEERING NOTES SECOND UNIT OF FRESH FROZEN PLASMA COMPLETED.NO ADVERSE REACTION NOTED.VITAL SIGNS WITH IN NORMAL LIMITS
[2020-04-21] MEDS: NEPRO 1,000 ML BOTTLE GT PRN (05:08)
--- NOTE | 2020-04-21 06:37 | NUR ---
SALES SECRETARY NOTES ON BED CALM,BLEEDING SUBSIDED ON TRACH SITE.GT FEEDING IN PROGRESS,HOB ELEVATED,RECTAL TUBE IN PLACE,BILATERAL WRIST RESTRAINTS IN PLACE FOR SAFETY.IN NO ACUTE DISTRESS.POSSIBLE HEMODIALYSIS TODAY.ALL DUE MEDS ADMINISTERED.WILL ENDORSE TO DAY NURSE FOR LUCIE.
[2020-04-21 06:44] LABS: BASOPHILS # (AUTO) 0.1 /CMM (0.0-0.2); EOSINOPHILS % (AUTO) 3.8 % (0.0-6.0); HEMATOCRIT 21 % (39-51); LYMPHOCYTES # (AUTO) 1.2 /CMM (0.8-4.8); LYMPHOCYTES % (AUTO) 10.1 % (20.0-44.0); MEAN CORPUSCULAR HGB CONC 32 g/dl (31.0-36.0); MEAN CORPUSCULAR VOLUME 94 fL (80-96); MONOCYTES # (AUTO) 1.4 /CMM (0.1-1.30); MONOCYTES % (AUTO) 12.7 % (2.0-12.0); NEUTROPHILS # (AUTO) 8.2 /CMM (1.8-8.9); NEUTROPHILS % (AUTO) 72.4 % (43.0-81.0); PLATELET COUNT (AUTO) 444 /CMM (150-450); RED BLOOD CELL COUNT(AUTO) 2.27 MIL/uL (4.5-6.0); WHITE BLOOD COUNT (AUTO) 11.4 K/uL (4.3-11.0)
[2020-04-21 06:54] LABS: CALCIUM, SERUM 8.4 mg/dL (8.5-10.1); MAGNESIUM 2.6 mg/dL (1.8-2.4); PHOSPHORUS 5.5 mg/dL (2.5-4.9); POTASSIUM 3.4 mmol/L (3.5-5.1)
--- NOTE | 2020-04-21 06:57 | NUR ---
FOUNDRY OPERATOR NOTES LIANET FROM LABORATORY RELAY CRITICAL RESULT ACCEPTED BY LALA ROCHA.RESULT HANDED DOWN TO NURSE ASSIGNED AND IT WAS ENDORSED TO LIBIA MONROY,NURSE ASSIGNED FOR DAYSHIFT FOR FOLLOW UP WITH HOSPITALIST THIS MORNING.
[2020-04-21 07:05] LABS: HEMOGLOBIN 6.8 g/dL (13.5-17.5)
--- NOTE | 2020-04-21 07:15 | NUR ---
ENAMEL SPRAYER NOTES PATIENT IN BED ALERT ORIENTED X 2-3, ABLE TO MOUTH WORDS. TRACH AND VENT ON ORDERED SETTING .NO ACUTE DISTRESS NOTED. BREATHING UNLABORED. NO SOB NOTED. IV ACCESS PATENT AND INTACT, NO REDNESS. NO BLEEDING NOTED. PRAKASH CATHETER INTACT DRAINING WELL. RECTAL TUBE INTACT. G TUBE FEEDING INFUSING WELL . HOB ELEVATED. SAFETY MEASURES IN PLACE, CALL LIGHT WITHIN REACH. WILL CONTINUE TO MONITOR ACCORDINGLY.
[2020-04-21 08:01] LABS: EOSINOPHILS % (MANUAL) 2 % (0-4); LYMPHOCYTES % (MANUAL) 16 % (16-48); MONOCYTES % (MANUAL) 9 % (0-11.0); NEUTROPHILS % (MANUAL) 73 (42-76)
[2020-04-21] MEDS: PANTOPRAZOLE 40 MG TABLET.DR PO SCH (08:02)
--- NOTE | 2020-04-21 08:25 | NUR ---
RN NOTES HEMOGLOBIN 6.8 NOTIFIED DNP GERALDINE PERDUE , WITH ORDER FOR 1 PRBC WITH HD, ORDER CLARIFIED AND READ BACK WITH DNP, NOTED AND CARRIED OUT.
[2020-04-21] MEDS: CARVEDILOL 6.25 MG TABLET PO SCH ×2 (09:14→17:10)
[2020-04-21] MEDS: SPIRONOLACTONE 25 MG TABLET PO SCH (09:14)
[2020-04-21] MEDS: FUROSEMIDE 40 MG TABLET PO SCH ×2 (09:14→17:10)
[2020-04-21] MEDS: LOSARTAN POTASSIUM 25 MG TABLET PO SCH ×2 (09:14→17:10)
[2020-04-21] MEDS: HYDROGEL DRESSING 90 GM TUBE TP SCH (09:15)
[2020-04-21] MEDS: SILVER SULFADIAZINE CREAM 25 GM TUBE TP SCH (09:17)
--- NOTE | 2020-04-21 10:39 | NUR ---
RN NOTES BLOOD TRANSFUSION STARTED WITH DIALYSIS , VITAL SIGNS STABLE. WILL CONTINUE TO MONITOR.
--- NOTE | 2020-04-21 10:54 | NUR ---
RN NOTES BLOOD TRANSFUSION ONGOING WITH DIALYSIS , VITAL SIGNS STABLE. NO ADVERSE REACTION OF BLOOD TRANSFUSION NOTED. WILL CONTINUE TO MONITOR.
--- NOTE | 2020-04-21 11:09 | NUR ---
RN NOTES BLOOD TRANSFUSION ONGOING WITH DIALYSIS , VITAL SIGNS STABLE. NO ADVERSE REACTION OF BLOOD TRANSFUSION NOTED. WILL CONTINUE TO MONITOR.
--- NOTE | 2020-04-21 11:39 | NUR ---
RN NOTES BLOOD TRANSFUSION ENDED , VITAL SIGNS STABLE. NO ADVERSE REACTION OF BLOOD TRANSFUSION NOTED. WILL CONTINUE TO MONITOR.
--- NOTE | 2020-04-21 13:55 | NUR ---
RT NOTE PT REMAINS MECHANICALLY VENTILATED VIA CUFFED TRACHEOSTOMY TUBE. CUFF INFLATED. TRACH TUBE MIDLINE AND SECURE. VENTILATOR SETTINGS PRESCRIBED. ALARMS SET PER PROTOCOL AND AUDIBLE. VENT PLUGGED IN TO RED OUTLET. AMBU BAG AT BED SIDE. NO DISTRESS NOTED AT MOMENT. BLEEDING NOTED AROUND STOMA. RN NOTIFIED. PT PLACED ON AC MODE PER MD RIGGINS VERBAL ORDER. PT AWAKE AND ALERT. Addendum: 04/21/20 at 1357 by DARCI CAMPA RT Amended: Links added.
[2020-04-21] MEDS: VANCOMYCIN 500 MG in IV D5W 100 ML IV PRN (15:04)
--- NOTE | 2020-04-21 16:00 | NUR ---
MINING HELPER NOTES NOTED WITH MINIMAL BLOOD AROUND THE TRACH AND POTASSIUM 3.4, NOTIFIED MANSOOR PERDUE , NO NEW ORDER ,MADE AT THIS TIME.
[2020-04-21] MEDS: GENTAMICIN 100 MG in IV D5W 100 ML IV PRN (17:09)
--- NOTE | 2020-04-21 19:00 | NUR ---
PHOTOLITHOGRAPHER NOTES PATIENT IN BED ALERT ORIENTED X 2-3, ABLE TO MOUTH WORDS. TRACH AND VENT ON ORDERED SETTING .NO ACUTE DISTRESS NOTED. BREATHING UNLABORED. NO SOB NOTED. IV ACCESS PATENT AND INTACT, NO REDNESS. NO BLEEDING NOTED. PRAKASH CATHETER INTACT DRAINING WELL. RECTAL TUBE INTACT. G TUBE FEEDING INFUSING WELL . HOB ELEVATED. SAFETY MEASURES IN PLACE, CALL LIGHT WITHIN REACH. WILL ENDORSE TO NIGHT NURSE FOR CONTINUITY OF CARE
--- NOTE | 2020-04-21 19:00 | NUR ---
bellhop service captain opening notes Received Pt from morning nurse. Pt is resting in bed comfortably. Pt is alert and orientedX2 and able to make mouth words. Pt is on mec. ventilator with 02 sat is 100%. No SOB. No S/S of distress noted. Tele monitor showed SR Hr at 97 bpm. SONY midline is clean, intact and flush without resistance. Light cath is clean, intact and draining yellow urine. Rectal tube is intact and patent. On going g-tube feeding nephro @ 30 ml/hr with 0 residual. Pt tolerating well. Safety precautions is maintained. Bed at low position, brakes locked, side rails upX3, HOB elevated and call light is within reach. Will continue to monitor.
[2020-04-22] VITALS (8 sets, daily range): BP systolic 106–135; BP diastolic 66–96
[2020-04-22] MEDS: NEPRO 1,000 ML BOTTLE GT PRN ×2 (05:45→17:26)
[2020-04-22 06:29] LABS: BASOPHILS # (AUTO) 0.1 /CMM (0.0-0.2); EOSINOPHILS % (AUTO) 3.7 % (0.0-6.0); HEMATOCRIT 21 % (39-51); LYMPHOCYTES # (AUTO) 1.1 /CMM (0.8-4.8); LYMPHOCYTES % (AUTO) 12.4 % (20.0-44.0); MEAN CORPUSCULAR HGB CONC 33 g/dl (31.0-36.0); MEAN CORPUSCULAR VOLUME 91 fL (80-96); MONOCYTES # (AUTO) 1.3 /CMM (0.1-1.30); MONOCYTES % (AUTO) 14.9 % (2.0-12.0); NEUTROPHILS # (AUTO) 6.1 /CMM (1.8-8.9); PLATELET COUNT (AUTO) 440 /CMM (150-450)
[2020-04-22 06:48] LABS: CALCIUM, SERUM 8.4 mg/dL (8.5-10.1); CREATININE 6.7 mg/dL (0.6-1.3); MAGNESIUM 2.4 mg/dL (1.8-2.4); PHOSPHORUS 4.4 mg/dL (2.5-4.9); POTASSIUM 3.4 mmol/L (3.5-5.1)
--- NOTE | 2020-04-22 06:50 | NUR ---
senior office assistant closing notes Pt is resting in bed comfortably. Pt is alert and orientedX2 and able to make mouth words. Pt is on [facility]. ventilator with 02 sat is 100%. No SOB. No S/S of distress noted. R internal jugular HD cath is clean, and intact. SONY midline is clean, intact and flush without resistance. Light cath is clean, intact and draining yellow urine. Rectal tube is intact and patent. G-tube feeding infusing well. Wound care provided as ordered. Pt tolerated well. Kept Pt clean, dry and comfortable. All needs met and attended. Safety precautions is maintained. Bed at low position, brakes locked, side rails upX3, HOB elevated and call light is within reach. Will endorse to morning nurse for LUCIE. Addendum: 04/22/20 at 0741 by GEOVANNA DIXON RN Bilateral soft wrist are intact, skin is warm to touch and circulation is check Q 2hrs.
[2020-04-22] MEDS: ACETYLCYSTEINE 10% SOLN 400 MG/4 ML VIAL NEB SCH ×3 (07:23→23:14)
--- NOTE | 2020-04-22 07:37 | NUR ---
SCIENTIFIC RESEARCH ASSOCIATE OPENING NOTE PATIENT IN BED RESTING COMFORTABLY. PATIENT ON VENT, TOLERATING VENT SETTINGS WELL. PATIENT IN NO ACUTE DISTRESS. NO SOB NOTED. PATIENT BREATHING IS EVEN AND UNLABORED. PATIENT ON CARDIAC MONITORING READING SINUS RHYTHM BIGEMINY HR 93 WITH PAC'S. PATIENT WITH BILATERAL SOFT WRIST RESTRAINTS, WITH GOOD CIRCULATION NOTED. PATIENT BED ALARM IS ON. SAFETY PRECAUTIONS IN PLACE. HOB IS ELEVATED. PATIENT BED IS LOCKED AND LOWEST POSITION. CALL LIGHT WITHIN REACH. WILL CONTINUE TO MONITOR.
--- NOTE | 2020-04-22 07:41 | NUR ---
RT RECEIVED PT TRACH VENT DEPENDENT. TRACH SIZE SHILEY # 8. COTTON BUYER DONE AND TRACH IS SECURE. VENT PLUGGED IN RED OUTLET. VENT ALARMS CHECKED AND AUDIBLE. PT ON CONTINUOUS PULSE OX. SPARE TRACH AND AMBU BAG NOTED HOB. SX WITH MOD THK ROSS SECRETIONS. NO BLEEDING NOTED AROUND STOMA. PT TOLERATING SETTINGS WELL NO SOB OR RESP DISTRESS NOTED. WILL CONTINUE TO MONITOR T.O SHIFT.
[2020-04-22] MEDS: PANTOPRAZOLE 40 MG TABLET.DR PO SCH (08:08)
[2020-04-22] MEDS: SPIRONOLACTONE 25 MG TABLET PO SCH (08:27)
[2020-04-22] MEDS: CARVEDILOL 6.25 MG TABLET PO SCH ×2 (08:27→17:12)
[2020-04-22] MEDS: LOSARTAN POTASSIUM 25 MG TABLET PO SCH ×2 (08:30→17:11)
[2020-04-22] MEDS: FUROSEMIDE 40 MG TABLET PO SCH ×2 (08:31→17:11)
--- NOTE | 2020-04-22 08:31 | NUR ---
DIRECTOR OF MECHANICAL ENGINEERING NOTE HELD AM BP MEDICATIONS DUE TO LOW BP 106/66, HR 99.
[2020-04-22] MEDS: SILVER SULFADIAZINE CREAM 25 GM TUBE TP SCH (08:34)
[2020-04-22] MEDS: HYDROGEL DRESSING 90 GM TUBE TP SCH (08:34)
--- NOTE | 2020-04-22 12:50 | NUR ---
CALLED TANYA REGARDING DOUGLAS, THE RADIOLOGIST HEAD OF PARTNER DEVELOPMENT MD ROBLES NOT ABLE TO COME NOW, SO I CALLED THE IR MD GOTTLIEB , AND HE WILL LET ME KNOW WHEN HE IS ABLE TO COME IN.
--- NOTE | 2020-04-22 12:58 | NUR ---
DISPLAY SPECIALIST NOTE PATIENT TO HAVE THORACENTESIS, ENGINE BUILDER MAIDA STATED THAT RADIOLOGIST WILL TRY TO COME TODAY AND WILL NOTIFY ME WHEN READY. PATIENT IN NO ACUTE DISTRESS. WILL CONTINUE TO MONITOR.
[2020-04-22] MEDS: PROSOURCE / PROSTAT (PYXIS) 30 ML UDC GT SCH ×2 (14:34→17:22)
--- NOTE | 2020-04-22 14:41 | NUR ---
COSTUME DRAPER NOTE DISCUSSED PLAN OF CARE WITH GERALDINE PERDUE. GERALDINE AWARE OF HGB AND HCT. NO NEW ORDERS AT THIS TIME.
--- NOTE | 2020-04-22 15:13 | NUR ---
LODE MINER BLASTING NOTE PATIENT TOLERATED THORACENTESIS WELL. PATIENT IN NO ACUTE DISTRESS. 1.3L OF FLUID TAKEN OUT. FLUID SENT TO LAB FOR ANALYSIS AND CULTURE.
[2020-04-22] MEDS: METRONIDAZOLE 500 MG TABLET PO SCH (17:12)
--- NOTE | 2020-04-22 18:56 | NUR ---
PATHOLOGY TECHNICIAN CLOSING NOTE PATIENT IN BED RESTING COMFORTABLY. PATIENT ON VENT, TOLERATING VENT SETTINGS WELL. PATIENT IN NO ACUTE DISTRESS. NO SOB NOTED. PATIENT BREATHING IS EVEN AND UNLABORED. PATIENT ON CARDIAC MONITORING READING SINUS RHYTHM HR 95 WITH PVC'S. PATIENT WITH BILATERAL SOFT WRIST RESTRAINTS, WITH GOOD CIRCULATION NOTED. PATIENT BED ALARM IS ON. SAFETY PRECAUTIONS IN PLACE. HOB IS ELEVATED. PATIENT KEPT CLEAN, DRY, AND COMFORTABLE THROUGHOUT SHIFT. WOUND CARE PROVIDED ORDERED. PATIENT TURNED AND REPOSITIONED Q2H. PATIENT BED IS LOCKED AND LOWEST POSITION. CALL LIGHT WITHIN REACH. WILL ENDORSE CARE TO PM SHIFT FOR LUCIE.
--- NOTE | 2020-04-22 19:30 | NUR ---
STENOGRAPHER PRINT SHOP OPENING NOTES: RECEIVED PATIENT IN BED, AWAKE, TALKING BUT NO SOUND, TRYING TO TELL SOMETHING. NEEDS ATTENDED. HOB ELEVATED AT ALL TIMES. WITH TRACHEOSTOMY INTACT, WITH SOME DRIED BLOOD. NO BLEEDING NOTED. NO SOB NOTED. NOT IN PAIN. WITH GT INTACT WITH FEEDING AT 45ML/HOUR, NO RESIDUAL NOTED. GT SITE DRESSING IS CLEAN DRY AND INTACT. WITH PRAKASH CATHETER INTACT, DRAINING CÉSAR COLORED URINE. WITH RECTAL TUBING INTACT WITH BROWNISH STOOL OUTPUT. WITH AIR MATTRESS ON. WITH BILATERAL SOFT WRISTS RESTRAINTS, SKIN AND CIRCULATION ARE WNL. BED ALARM ON. BED IN LOWEST AND LOCKED POSITION. WITH RIGHT LOWER LEG DRESSINGS INTACT, DAYSHIFT RN CHANGED DRESSING TODAY. WITH RIGHT ANKLE ANTERIOR SITE WITH 4 RENETTA INTACT OPEN TO AIR.WITH LEFT UPPER ARM PICC LINE INTACT. WITH DRESSING ON THE MID CHEST INTACT, CLEAN, DRY AND INTACT.
[2020-04-23] VITALS (9 sets, daily range): BP systolic 113–135; BP diastolic 70–79
[2020-04-23] MEDS: METRONIDAZOLE 500 MG TABLET PO SCH ×3 (04:13→20:54)
--- NOTE | 2020-04-23 06:26 | NUR ---
DYE MAKER CLOSING NOTES: PATIENT IN BED, AWAKE. NO SOB NOTED, NO COMPLAIN OF PAIN. HOB ELEVATED AT ALL TIMES. WITH TRACHEOSTOMY TUBE INTACT.NO BLEEDING NOTED. PATIENT DISCONNECTED THE TRACH 3X DURING THE SHIFT. INSTRUCTED NOT TO DO IT.KEPT THE BILATERAL SOFT WRISTS RESTRAINTS. WITH GT FEEDING AT 45ML/HOUR. BED ALARM ON. BED IN LOWEST AND LOCKED POSITION. WITH PRAKASH CATHETER INTACT, SECURED WITH TAPE. WITH RECTAL TUBE INTACT. LEFT UPPER ARM PICC LINE INTACT, FLUSHED WITH 10CC NS EACH PORT WITH GOOD BRISK BLOOD RETURN.
[2020-04-23 06:59] LABS: BASOPHILS # (AUTO) 0.1 /CMM (0.0-0.2); BASOPHILS % (AUTO) 0.8 % (0.0-2.0); EOSINOPHILS % (AUTO) 4.1 % (0.0-6.0); LYMPHOCYTES # (AUTO) 1.6 /CMM (0.8-4.8); LYMPHOCYTES % (AUTO) 16.6 % (20.0-44.0); MEAN CORPUSCULAR HGB CONC 33 g/dl (31.0-36.0); MEAN CORPUSCULAR VOLUME 92 fL (80-96); MONOCYTES # (AUTO) 1.3 /CMM (0.1-1.30); MONOCYTES % (AUTO) 13.7 % (2.0-12.0); NEUTROPHILS # (AUTO) 6.3 /CMM (1.8-8.9); NEUTROPHILS % (AUTO) 64.8 % (43.0-81.0); PLATELET COUNT (AUTO) 474 /CMM (150-450); RED BLOOD CELL COUNT(AUTO) 2.15 MIL/uL (4.5-6.0); WHITE BLOOD COUNT (AUTO) 9.7 K/uL (4.3-11.0)
[2020-04-23 07:09] LABS: HEMATOCRIT 20 % (39-51); HEMOGLOBIN 6.5 g/dL (13.5-17.5)
[2020-04-23 07:31] LABS: CALCIUM, SERUM 8.1 mg/dL (8.5-10.1); MAGNESIUM 2.5 mg/dL (1.8-2.4); PHOSPHORUS 4.4 mg/dL (2.5-4.9); POTASSIUM 3.4 mmol/L (3.5-5.1)
[2020-04-23] MEDS: ACETYLCYSTEINE 10% SOLN 400 MG/4 ML VIAL NEB SCH ×3 (07:31→22:51)
--- NOTE | 2020-04-23 07:34 | NUR ---
METAL DRESSER OPENING NOTE PATIENT IN BED RESTING COMFORTABLY. PATIENT ON VENT, TOLERATING VENT SETTINGS WELL. PATIENT IN NO ACUTE DISTRESS. NO SOB NOTED. PATIENT BREATHING IS EVEN AND UNLABORED. PATIENT ON CARDIAC MONITORING READING SINUS TACHYCARDIA HR 107 WITH PVC'S NOTED. PATIENT WITH BILATERAL SOFT WRIST RESTRAINTS, WITH GOOD CIRCULATION NOTED. PATIENT BED ALARM IS ON. SAFETY PRECAUTIONS IN PLACE. HOB IS ELEVATED. PATIENT BED IS LOCKED AND LOWEST POSITION. CALL LIGHT WITHIN REACH. WILL CONTINUE TO MONITOR.
[2020-04-23 07:44] LABS: CREATININE 7.8 mg/dL (0.6-1.3)
--- NOTE | 2020-04-23 08:00 | NUR ---
CIRCUIT TESTER NOTE PATIENT TEMPERATURE 100.7F. IMPLEMENTED COOLING MEASURES.
--- NOTE | 2020-04-23 08:05 | NUR ---
ZIGZAG ELASTIC ATTACHER NOTE INFORMED GERALDNIE PERDUE OF HGB 6.5, CREATININE 7.8, AND GENTAMICIN 2.9. GERALDINE MADE AWARE, NO NEW ORDERS AT THIS TIME. INFORMED [facility] OF GENTAMICIN 2.9 TROUGH LEVEL. PER GOGO IF PATIENT HAS DIALYSIS TODAY, PATIENT CAN RECEIVE GENTAMICIN DOSE AFTER DIALYSIS.
[2020-04-23] MEDS: PANTOPRAZOLE 40 MG TABLET.DR PO SCH (08:25)
[2020-04-23] MEDS: PROSOURCE / PROSTAT (PYXIS) 30 ML UDC GT SCH ×3 (08:27→16:54)
[2020-04-23] MEDS: HEPARIN SODIUM, PORCINE 5000 UNITS/1 ML VIAL SQ SCH ×2 (08:27→20:54)
--- NOTE | 2020-04-23 08:28 | NUR ---
CERTIFIED PARALEGAL NOTE HELD HEPARIN 0900 DOSE DUE TO PATIENT LOW HGB/HCT.
[2020-04-23] MEDS: SPIRONOLACTONE 25 MG TABLET PO SCH (08:29)
[2020-04-23] MEDS: FUROSEMIDE 40 MG TABLET PO SCH ×2 (08:29→16:58)
[2020-04-23] MEDS: CARVEDILOL 6.25 MG TABLET PO SCH ×2 (08:30→16:58)
[2020-04-23] MEDS: LOSARTAN POTASSIUM 25 MG TABLET PO SCH ×2 (08:30→16:58)
[2020-04-23] MEDS: SILVER SULFADIAZINE CREAM 25 GM TUBE TP SCH (08:33)
[2020-04-23] MEDS: HYDROGEL DRESSING 90 GM TUBE TP SCH (08:33)
[2020-04-23 09:00] LABS: EOSINOPHILS % (MANUAL) 7 % (0-4); LYMPHOCYTES % (MANUAL) 26 % (16-48); MONOCYTES % (MANUAL) 13 % (0-11.0); NEUTROPHILS % (MANUAL) 54 (42-76)
--- NOTE | 2020-04-23 09:57 | NUR ---
SORT OPERATIONS SUPERVISOR NOTE INFORMED GERALDINE PATIENT GETTING AGITATED AND RESTLESS AND PATIENT INSISTING ON GETTING UP TO WALK AND WANTING TO REMOVE HIS VENT. PER GERALDINE SHE WILL COME AND SEE PATIENT. DR. RIGGINS CAME AND EVALUATED PATIENT WELL. PER DR. RIGGINS HE INFORMED PATIENT TO NOT REMOVE TRACH AND THAT PATIENT NEEDS MECHANICAL VENT. PATIENT ON VENT, TOLERATING VENT SETTINGS WELL. WILL CONTINUE TO MONITOR.
[2020-04-23] MEDS: HYDROCODONE/APAP 5/325MG TABLET PO PRN ×2 (10:58→20:55)
[2020-04-23] MEDS ORDERED: QUETIAPINE FUMARATE 25 MG TABLET PO PRN (11:00)
--- NOTE | 2020-04-23 11:00 | NUR ---
POULTRY HATCHERY MANAGER NOTE PATIENT EXPERIENCING GENERALIZED PAIN 8/10. NORCO PRN GIVEN ORDERED.
--- NOTE | 2020-04-23 12:26 | NUR ---
WIRE FENCE BUILDER NOTE CLARIFIED AND SPOKE WITH DR. TAYLOR REGARDING BLOOD TRANSFUSIONDUE TO MD PLACING ORDER FOR BLOOD TRANSFUSION. INFORMED HIM THAT GERALDINE PERDUE WANTS 1 UNIT PRBC TRANSFUSED WITH HD. PER DR. TAYLOR HE ALSO ONLY WANTS 1 UNIT PRBC NOT 2.
--- NOTE | 2020-04-23 15:00 | NUR ---
JUICE MIXER NOTE CHARGE NURSE DIPIKA SPOKE WITH GERALDINE PERDUE DUE TO PATIENT HISTORY WITH CABG. PER GERALDINE PATIENT IS TO CONTINUE HEPARIN ORDERED LONG THERE IS NO ACTIVE BLEEDING.
--- NOTE | 2020-04-23 16:00 | NUR ---
LOAN INTERVIEWER NOTE SAMPLE STOOL FOR CDIFF SENT TO LAB WITH PROPER PROTOCOL SHEET AND CHARGE NURSE DIPIKA LOOKED OVER.
--- NOTE | 2020-04-23 16:05 | NUR ---
INJURY/SAFETY HAZARD ASSESSMENT NOTE PER FISHING TACKLE REPAIRER DANITA. PATIENT TO HAVE DIALYSIS TOMORROW SCHEDULED.
--- NOTE | 2020-04-23 16:25 | NUR ---
MEDICAL CHEMIST NOTE PATIENT UNDERGOING BLOOD TRANSFUSION. NO ADVERSE REACTIONS NOTED. PATIENT BREATHING IS EVEN AND UNLABORED. PATIENT IN NO ACUTE DISTRESS. NO SOB NOTED.
[2020-04-23] MEDS: NEPRO 1,000 ML BOTTLE GT PRN (17:13)
--- NOTE | 2020-04-23 17:21 | NUR ---
RT NOTE PT REMAINS MECHANICALLY VENTILATED VIA CUFFED TRACHEOSTOMY TUBE. CUFF INFLATED. TRACH TUBE MIDLINE AND SECURE. VENTILATOR SETTINGS PRESCRIBED. ALARMS SET PER PROTOCOL AND AUDIBLE. VENT PLUGGED IN TO RED OUTLET. AMBU BAG AND BACK UP TRACH AT BED SIDE. NO DISTRESS NOTED. Addendum: 04/23/20 at 1723 by DARCI CAMPA RT Amended: Links added.
--- NOTE | 2020-04-23 17:56 | NUR ---
REPORTING PROCESS CONSULTANT NOTE NERA SEEN AND EVALUATED PATIENT. PER EVELIN IF TEMPERATURE CLIMBS OVER 100.5, ORDER FOR BLOOD CULTURES. TEMPERATURE CURRENTLY AT 99.2 AND SHE IS AWARE OF RECENT TRENDS OF TEMPERATURES.
--- NOTE | 2020-04-23 18:11 | NUR ---
HIGH FREQUENCY MILL OPERATOR NOTE PATIENT COMPLETED 1 UNIT PRBC BLOOD TRANSFUSION. NO ADVERSE REACTIONS NOTED. PATIENT BREATHING IS EVEN AND UNLABORED. PATIENT IN NO ACUTE DISTRESS. NO SOB NOTED.
--- NOTE | 2020-04-23 18:54 | NUR ---
ELECT EQUIP MAINT ENG CLOSING NOTE PATIENT IN BED RESTING COMFORTABLY. PATIENT ON VENT, TOLERATING VENT SETTINGS WELL. PATIENT IN NO ACUTE DISTRESS. NO SOB NOTED. PATIENT BREATHING IS EVEN AND UNLABORED. PATIENT ON CARDIAC MONITORING READING SINUS RHYTHM HR 99 WITH PVC'S. PATIENT WITH BILATERAL SOFT WRIST RESTRAINTS, WITH GOOD CIRCULATION NOTED. PATIENT BED ALARM IS ON. SAFETY PRECAUTIONS IN PLACE. COOLING MEASURES IN PLACE WITH TEMPERATURE OF 99.2. HOB IS ELEVATED. PATIENT KEPT CLEAN, DRY, AND COMFORTABLE THROUGHOUT SHIFT. WOUND CARE PROVIDED ORDERED. PATIENT TURNED AND REPOSITIONED Q2H. PATIENT BED IS LOCKED AND IN LOWEST POSITION. CALL LIGHT WITHIN REACH. WILL ENDORSE CARE TO PM SHIFT FOR LUCIE.
--- NOTE | 2020-04-23 19:20 | NUR ---
SECRETARY ADMINISTRATIVE ASSISTANT OPENING NOTES: RECEIVED PATIENT IN BED, AWAKE, MOUTH WORDS. PATIENT IS CALM AT THIS TIME. HOB ELEVATED. NO SOB NOTED. NOT IN PAIN. CALL LIGHT WITHIN REACH. BED ALARM ON. BED IN LOWEST AND LOCKED POSITION. WITH GT FEEDING AT 45ML/HOUR. GT SITE IS CLEAN AND DRY, NO LEAKING NOTED. WITH TRACH INTACT, NO BLEEDING NOTED. DRESSING IS CLEAN AND DRY,INTACT. WITH BOTH WRISTS SOFT RESTRAINTS, SKIN AND CIRCULATION WNL. WITH PRAKASH CATHETER INTACT, WITH CÉSAR COLORED URINE. WITH RECTAL TUBE INTACT,WITH BROWNISH STOOL OUTPUT. ON AIR MATTRESS.
--- NOTE | 2020-04-23 20:56 | NUR ---
PATIENT REMOVED THE TELE MONITOR LEADS X2.
--- NOTE | 2020-04-23 21:21 | NUR ---
LEFT UPPER ARM PICC LINE DOUBLE LUMEN FLUSHED EACH PORT WITH 10ML NS, PATENT, DRESSING IS CLEAN,DRY AND INTACT.
--- NOTE | 2020-04-23 21:23 | NUR ---
TRACH SECRETIONS SUCTIONED.
[2020-04-24] VITALS (7 sets, daily range): BP systolic 132–152; BP diastolic 87–106
--- NOTE | 2020-04-24 00:05 | NUR ---
PATIENT REMOVED HIS GASTRIC TUBE, CHARGE NURSE MADE AWARE. SADIA CHARGE NURSE INSERTED A PRAKASH CATHETER FR 16 INTO THE G-TUBE SITE AND INFLATED THE BALLOON, CLAMPED, COVERED WITH GAUZE AND SECURED WITH TAPE. INFORMED EUDARDO BAR. FEEDING HELD. NO BLEEDING NOTED. HOB ELEVATED AT ALL TIMES. PATIENT ALSO DISCONNECTED THE TRACH, CONNECTED BACK. PATIENT COMPLAINED OF DIFFICULTY BREATHING, RT CALLED AND CAME.
--- NOTE | 2020-04-24 01:09 | NUR ---
SPOKE TO EDUARDO BAR RE: GT REMOVED BY THE PATIENT. AND INFORMED HIM ABOUT THE PRAKASH CATH FR 16 INSERTED TO THE GT SITE AND HE SAID THAT IT IS FINE SO IT WON'T CLOSED. HE WILL NOTIFY THE GI COPIER AND PRINTER FIELD TECHNICIAN DR OLSEN. CHARGE NURSE AWARE.
[2020-04-24] MEDS: METRONIDAZOLE 500 MG TABLET PO SCH ×3 (04:28→20:41)
--- NOTE | 2020-04-24 05:33 | NUR ---
PATIENT RECEIVED ON TRACH TO VENT WITH SETTINGS OF AC 16, 550 Vt, 40%, +5. SUCTIONED FOR MINIMAL, THICK, WHITE SECRETIONS. GIVEN IN-LINE TREATMENT WITH NO ADVERSE REACTIONS. AMBU BAG AT BEDSIDE. VENT AND PULSE OXIMETER ALARMS AUDIBLE AND VISIBLE. VENT PLUGGED INTO RED OUTLET. Addendum: 04/24/20 at 0535 by YANNA MORALES RT Amended: Links added.
--- NOTE | 2020-04-24 05:37 | NUR ---
CALLED EPIC FOR EDUARDO BAR RE: PATIENT COMPLAINED OF PAIN.
--- NOTE | 2020-04-24 06:15 | NUR ---
GOLF STUD RIVETER CLOSING NOTES: PATIENT IN BED, ASLEEP, EASILY AROUSABLE. NO S/S DISTRESS NOTED. NEEDS ATTENDED. HOB ELEVATED AT ALL TIMES. CALL LIGHT WITHIN REACH. BED ALARM ON. BED IN LOWEST AND LOCKED POSITION. WITH RECTAL TUBE INTACT. PRAKASH CATHETER INTACT.AFEBRILE.V/S WNL. WITH BILATERAL SOFT WRISTS RESTRAINTS ON. NO BLEEDING ON THE GT SITE, RPAKASH CATHETER STILL INTACT AND CLAMPED. TRACH STILL INTACT.
--- NOTE | 2020-04-24 07:30 | NUR ---
tele basket assembler: nephro f/u seen by dr. avina at this time. per , pt to have hd tx today.
[2020-04-24] MEDS: ACETYLCYSTEINE 10% SOLN 400 MG/4 ML VIAL NEB SCH ×3 (07:41→23:00)
--- NOTE | 2020-04-24 07:44 | NUR ---
RT RECEIVED PT VENT TRACH DEPENDENT W/ NOTED SETTINGS. DIVISION ROAD SUPERVISOR DONE AND TRACH IS SECURE. VENT ALARMS CHECKED AND AUDIBLE. VENT PLUGGED IN RED OUTLET. SX W/ MOD THK PALE YELLOW SECRETIONS. AMBU BAG AND SPARE TRACH NOTED HOB. PT ON CONTINUOUS PULSE OX. PT TOLERATING SETTINGS WELL, NO SOB OR RESP DISTRESS NOTED. WILL CONTINUE TO MONITOR T/O SHIFT.
[2020-04-24 07:49] LABS: BASOPHILS # (AUTO) 0.1 /CMM (0.0-0.2); BASOPHILS % (AUTO) 0.8 % (0.0-2.0); EOSINOPHILS % (AUTO) 3.4 % (0.0-6.0); HEMATOCRIT 25 % (39-51); LYMPHOCYTES # (AUTO) 1.7 /CMM (0.8-4.8); LYMPHOCYTES % (AUTO) 16.1 % (20.0-44.0); MEAN CORPUSCULAR HGB CONC 32 g/dl (31.0-36.0); MEAN CORPUSCULAR VOLUME 94 fL (80-96); MONOCYTES # (AUTO) 1.4 /CMM (0.1-1.30); NEUTROPHILS # (AUTO) 7.1 /CMM (1.8-8.9); NEUTROPHILS % (AUTO) 66.7 % (43.0-81.0); PLATELET COUNT (AUTO) 517 /CMM (150-450); RED BLOOD CELL COUNT(AUTO) 2.65 MIL/uL (4.5-6.0); WHITE BLOOD COUNT (AUTO) 10.7 K/uL (4.3-11.0)
[2020-04-24 07:56] LABS: CALCIUM, SERUM 8.4 mg/dL (8.5-10.1); MAGNESIUM 2.8 mg/dL (1.8-2.4); PHOSPHORUS 5.9 mg/dL (2.5-4.9); POTASSIUM 3.9 mmol/L (3.5-5.1)
[2020-04-24 08:08] LABS: CREATININE 8.9 mg/dL (0.6-1.3)
--- NOTE | 2020-04-24 08:20 | NUR ---
tele graduating machine operator: notes dr. avina at bedside and updated plan of care. pt able write down his needs and pt wants something for pain and anxiety. dr. quick notified and made aware with order to give morphine 2mg ivp q4 hr prn and ativan 2mg iv once. orders read back and carried out and acknowledged.
[2020-04-24] MEDS: MORPHINE SULFATE INJ 2 MG/ML DISP.SYRIN IV PRN ×2 (08:37→12:51)
--- NOTE | 2020-04-24 08:37 | NUR ---
tele dry end tester: notes ativan 2mg ivp and morphine 2mg ivp given by rn. will continue to monitor.
[2020-04-24] MEDS: HEPARIN SODIUM, PORCINE 5000 UNITS/1 ML VIAL SQ SCH ×2 (09:00→20:32)
[2020-04-24] MEDS ORDERED: LORAZEPAM INJ 2 MG/ML VIAL IV ONE ×2 (09:00→13:30)
[2020-04-24] MEDS: FUROSEMIDE 40 MG TABLET PO SCH ×2 (09:00→16:39)
[2020-04-24] MEDS: PROSOURCE / PROSTAT (PYXIS) 30 ML UDC GT SCH ×3 (09:00→16:39)
[2020-04-24] MEDS: LOSARTAN POTASSIUM 25 MG TABLET PO SCH ×2 (09:00→16:39)
[2020-04-24] MEDS: CARVEDILOL 6.25 MG TABLET PO SCH ×2 (09:00→16:39)
[2020-04-24] MEDS: SPIRONOLACTONE 25 MG TABLET PO SCH (09:00)
[2020-04-24] MEDS: PANTOPRAZOLE 40 MG TABLET.DR PO SCH (09:05)
--- NOTE | 2020-04-24 09:05 | NUR ---
tele radiology teacher: notes pt sounds asleep. no resp. distress noted. pt for hd today. held all meds due to peg out, awaiting for dr. little (gi), for possible peg placement. brice in the g-tube site to keep hole patent. will continue to monitor.
--- NOTE | 2020-04-24 09:45 | NUR ---
tele porcelain turner: notes pt still attempting to remove dressings and brice, pt remains easily agitated with anxiousness when tied up. right wrist restraint remains off for writing. reality orientation provided prn. will continue to monitor.
[2020-04-24] MEDS: HYDROGEL DRESSING 90 GM TUBE TP SCH (10:16)
[2020-04-24] MEDS: SILVER SULFADIAZINE CREAM 25 GM TUBE TP SCH (10:16)
--- NOTE | 2020-04-24 10:45 | NUR ---
tele shaft tender: pulmo f/u seen by dr. bautista with new orders. orders acknowledged.
--- NOTE | 2020-04-24 12:00 | NUR ---
tele entry level manager: notes pt still attempting to pull his dialysis cath, brice catheter, and wound dressings. reality orientation provided prn. pt easily gets agitated, cursing staff by mouthing words. re applied right wrist restraint. both wrist restraints in place. cn made aware. will continue to monitor.
--- NOTE | 2020-04-24 12:40 | NUR ---
tele front desk receptionist: notes found pt legs on the side rails and pt has been scratching his right thigh with skin peeled off. dressing done to right thigh. reality orientation provided prn. repositioned pt. pt has periods of confusion, gets upset and easily irritated/agitated. cn made aware. hands mittens provided. will continue to monitor.
--- NOTE | 2020-04-24 12:57 | NUR ---
RN NOTES PT REQUESTED PAIN MEDICINE. PT APPEARS IRRITABLE, AGITATED, FACIAL GRIMACING. VS STABLE, PRN MORPHINE GIVEN ORDERED. WILL CONTINUE TO MONITOR, ENDORSED TO LALA/BRADEN FOR REASSESSMENT.
--- NOTE | 2020-04-24 13:00 | NUR ---
tele support merchandiser: notes still awaiting for gi to see pt, awaiting for peg placemet. meds held.
--- NOTE | 2020-04-24 13:20 | NUR ---
tele didactic program in dietetics director: notes pt still restless, moving around in bed with his legs hanging. dr. quick notified with order to give another ativan 2mg ivp once. order read back and carried out.
--- NOTE | 2020-04-24 13:34 | NUR ---
tele director of promotions: notes ativan 2mg ivp given by rn. will continue to monitor.
--- NOTE | 2020-04-24 14:00 | NUR ---
tele hotel clerk: notes loretta (hd nurse) here and preparing pt for hd tx. pt more relaxed and calm. will continue to monitor.
--- NOTE | 2020-04-24 16:00 | NUR ---
tele assistant professor: notes f/u made with dr. little (gi), left message re: consult. still awaiting for him to see pt for evaluation due to g-tube dislodged.
--- NOTE | 2020-04-24 16:10 | NUR ---
tele metal tile setter: notes hd completed with 1 liter net uf. b/p 135/89, hr 80.
--- NOTE | 2020-04-24 16:20 | NUR ---
tele credit historian: notes pm care rendered. turned and repositioned. darby soft with mittens released and repositioned for circulation and adl's. pt still gets restless. reality orientation provided prn.
--- NOTE | 2020-04-24 16:39 | NUR ---
tele service planner: notes still unable to give meds due to dislodge peg earlier this morning, brice in for make site patent. awaiting for dr. little for eval and possible peg placement.
[2020-04-24] MEDS: VANCOMYCIN 500 MG in IV D5W 100 ML IV PRN (16:48)
[2020-04-24] MEDS: GENTAMICIN 100 MG in IV D5W 100 ML IV PRN (17:51)
--- NOTE | 2020-04-24 18:50 | NUR ---
tele histology specialist: notes marisela (partner, responsible constitution party) called and updated condition. informed marisela that pt pulled out his gastric tube feeding and awaiting for gi for peg placement and informed marisela that pt r.t. will wean (cpap) him tomorrow per migration agent order.
--- NOTE | 2020-04-24 19:05 | NUR ---
tele import clerk: notes report given to risa Duartern) for continuity of care.
--- NOTE | 2020-04-24 19:31 | NUR ---
TELE/RN OPENING NOTE Patient is awake in bed, a/o x1-2, unable to vocalize words, able to write words. HOB elevated. Afebrile. Breathing is even and unlabored. On mechanical ventilation, tolerating well. Tele monitor sinus tachycardia HR 116. Skin is warm, pink, dry appropriate for ethnicity. Wound dressing to right thigh, right lateral leg, right medial lower leg, dressings are intact with mild drainage, serosanguineous. Surgical incision scar noted on midline chest, open to air. Soft wrist restraints and mittens in place, skin is intact. G-tube not intact at this time, patient pulled out. No signs of infection or redness noted. IV site SONY picc line saline locked, patent and intact. RIJ intact, no redness. Patient is incontinent. Light catheter in place, draining clear, yellow, urine. Rectal tube in place; brown, moderate soft stool noted. Bed in low position, wheels locked, side rails up x2, call light within reach.
--- NOTE | 2020-04-24 20:37 | NUR ---
TELE/RN NOTE Held heparin dose d/t possible G-tube placement tomorrow 04/25.
--- NOTE | 2020-04-24 20:41 | NUR ---
TELE/RN NOTE Unable to give scheduled medications d/t malfunctioning g-tube. Pending g-tube placement. Will continue to monitor.
[2020-04-25] VITALS (8 sets, daily range): BP systolic 135–153; BP diastolic 90–99
[2020-04-25] MEDS: METRONIDAZOLE 500 MG TABLET PO SCH ×3 (05:00→22:20)
[2020-04-25] MEDS: PANTOPRAZOLE 40 MG TABLET.DR PO SCH (07:30)
--- NOTE | 2020-04-25 07:30 | NUR ---
STEAM BOX HAND NOTES PT IN BED, AWAKE, ALERT, ABLE TO MOUTH WORDS, NOT IN DISTRESS, NO SIGN OF PAIN, CALL LIGHT WITHIN REACH, NEEDS ATTENDED, KEPT WARM AND COMFORTABLE IN BED.
[2020-04-25] MEDS: ACETYLCYSTEINE 10% SOLN 400 MG/4 ML VIAL NEB SCH ×3 (07:42→23:45)
--- NOTE | 2020-04-25 07:43 | NUR ---
TELE/RN CLOSING NOTE Patient is awake in bed, a/o x1-2, unable to vocalize words, able to write words. HOB elevated. Afebrile. Breathing is even and unlabored. On mechanical ventilation: AC 16 FiO2 40% PEEP 5 TV 550. Tele monitor sinus tachycardia HR 108. Skin is warm, pink, dry appropriate for ethnicity. Wound dressing changed to right thigh, right lateral leg, right medial lower leg, dressings are intact with moderate drainage, serosanguineous. Surgical incision scar noted on midline chest. Soft wrist restraints and mittens in place, skin is intact. G-tube not intact at this time, patient pulled out. No signs of infection or redness noted. IV site SONY picc line saline locked, patent and intact. RIJ intact, no redness. Patient is incontinent. Light catheter in place, draining clear, yellow, urine, 500 ml. Rectal tube in place; brown, moderate soft stool noted, 100 ml. Bed in low position, wheels locked, side rails up x2, call light within reach.
--- NOTE | 2020-04-25 07:46 | NUR ---
on weaning trial per dr. bautista cpap 5 ps 15 fio2 40% rn notified on changes. Addendum: 04/25/20 at 0748 by JAYMIE ASH RT Amended: Links added. Addendum: 04/25/20 at 0800 by JAYMIE ASH RT ABOVE STATEMENT IS IN ERROR. This is the correct info: on weaning trial per dr. bautista cpap 5 ps 20 fio2 40% rn notified on changes.
[2020-04-25] MEDS: SPIRONOLACTONE 25 MG TABLET PO SCH (09:00)
[2020-04-25] MEDS: HEPARIN SODIUM, PORCINE 5000 UNITS/1 ML VIAL SQ SCH ×2 (09:00→22:21)
[2020-04-25] MEDS: HYDROGEL DRESSING 90 GM TUBE TP SCH (09:00)
[2020-04-25] MEDS: LOSARTAN POTASSIUM 25 MG TABLET PO SCH ×2 (09:00→16:45)
[2020-04-25] MEDS: CARVEDILOL 6.25 MG TABLET PO SCH ×2 (09:00→16:40)
[2020-04-25] MEDS: PROSOURCE / PROSTAT (PYXIS) 30 ML UDC GT SCH ×3 (09:00→16:40)
[2020-04-25] MEDS: FUROSEMIDE 40 MG TABLET PO SCH ×2 (09:00→16:45)
[2020-04-25] MEDS: SILVER SULFADIAZINE CREAM 25 GM TUBE TP SCH (09:01)
[2020-04-25 10:12] LABS: ABG BASE EXCESS -2.2 mmol/L; ABG OXYGEN SATURATION 97.9 % (92.0-98.5); ABG PH 7.417 (7.350-7.450); ABG PO2 108.3 mmHg (75.0-100.0); AaDO2 136.7 mmHg; COHb 0.6 % (0.5-1.5); MetHb 0.3 % (0.0-1.5); SITE, ABG Right Brachial; VENT MODE, BG CPAP 5 / PS 20
--- NOTE | 2020-04-25 13:00 | NUR ---
SOCKET WELDER HELPER NOTES PT IN BED, RESTING, ALERT AND ABLE TO MOUTH WORDS, NOT IN DISTRESS, ROUNDING DONE FOR SAFETY, KEPT COMFORTABLE.
--- NOTE | 2020-04-25 18:11 | NUR ---
SURVEYING CREW STAKE RUNNER NOTES PT IN BED, AWAKE, ALERT AND ORIENTED, WATCHING TV, ABLE TO MOUTH WORDS, PM CARE PROVIDED, CALL LIGHT WITHIN REACH, KEPT WARM AND COMFORTABLE IN BED, ALL NEEDS ATTENDED.
--- NOTE | 2020-04-25 19:30 | NUR ---
SPOOL FIXER OPENING PM NOTES PT IN BED, AWAKE, ALERT, ABLE TO MOUTH WORDS, IN NO APPARENT DISTRESS. PT ATTACHED TO VENTILATOR FOW CPAP SETTINGS PER ORDERS. NOT IN DISTRESS, REPORTS PAIN IN RIGHT THIGH ICE PACKS APPLIED AND REPORTS SOME RELIEF. , CALL LIGHT PLACED WITHIN REACH, KEPT WARM AND COMFORTABLE IN BED. VERBALIZED UNDERSTANDING TO CALL FOR ASSISTANCE NEEDED.
--- NOTE | 2020-04-25 20:25 | NUR ---
dr. little at the bedside to perform peg tube replacement. peg tube replaced new orders to continue previous diet.
--- NOTE | 2020-04-25 22:00 | NUR ---
PATIENT AXOX3 AND MOUTHED UNDERSTANDING TO NOT REMOVE TUBES AND MOUTHED UNDERSTANDING TO NOT DISRUPT MEDICAL TREATMENT. MOUTHED UNDERSTANDING TO NOT REMOVE TRACH OR PULL ON TUBES. MOUTHED UNDERSTANDING TO NOT PULL OR TUG ON GTUBE SITE. RESTRAINTS REMOVED FROM BILATERAL WRISTS. WILL CONT TO MONITOR. FOR ACTIVITY THAT MAY INDICATE THE CONTINUED NEED FOR RESTRAINTS.
[2020-04-25] MEDS: NEPRO 1,000 ML BOTTLE GT PRN (22:39)
[2020-04-26] VITALS: BP 145/92
--- NOTE | 2020-04-26 00:30 | NUR ---
PT C/O NOT BEING ABLE TO DRINK WATER. PT C/O NOT BEING ABLE TO DRINK WATER. PT BECAME FRUSTRATED MOUTHING "WELL WHY NOT." INFORMED THAT IT MAY NOT BE SAFE SO THAT I COULD NOT ALLOW HIM TO DRINK WATER. NO SPEECH THERAPY EVALUATION PERFORMED RECENTLY SO ST TAO ORDERED PER PROTOCOL TO EVALUATE ABILITY TO EAT AND DRINK.
--- NOTE | 2020-04-26 03:44 | NUR ---
PATIENT FOUND TO HAVE [facility] PT ASKED WHAT HAPPEND AND PT SOMEWHAT CONFUSED AND JUST SHRUGS. NEW ORDER TO RENEW BILATERAL SOFT WRIST RESTRAINTS FOR PATIENT SAFETY.
[2020-04-26 04:32] VITALS: BP 137/90
[2020-04-26] MEDS: METRONIDAZOLE 500 MG TABLET PO SCH ×3 (05:13→21:09)
[2020-04-26] MEDS: HYDROCODONE/APAP 5/325MG TABLET PO PRN (05:13)
[2020-04-26 07:03] LABS: ALBUMIN 1.9 g/dL (3.4-5.0); BILIRUBIN,TOTAL 0.6 mg/dL (0.2-1.0); MAGNESIUM 2.6 mg/dL (1.8-2.4); PHOSPHORUS 6.3 mg/dL (2.5-4.9); POTASSIUM 3.7 mmol/L (3.5-5.1); TOTAL PROTEIN, SERUM 6.6 g/dL (6.4-8.2)
[2020-04-26 07:09] LABS: CREATININE 8.8 mg/dL (0.6-1.3)
[2020-04-26 07:13] LABS: BASOPHILS # (AUTO) 0.1 /CMM (0.0-0.2); BASOPHILS % (AUTO) 1.1 % (0.0-2.0); EOSINOPHILS % (AUTO) 4.5 % (0.0-6.0); HEMATOCRIT 23 % (39-51); HEMOGLOBIN 7.3 g/dL (13.5-17.5); LYMPHOCYTES # (AUTO) 1.3 /CMM (0.8-4.8); LYMPHOCYTES % (AUTO) 15.2 % (20.0-44.0); MEAN CORPUSCULAR HGB CONC 33 g/dl (31.0-36.0); MEAN CORPUSCULAR VOLUME 92 fL (80-96); MONOCYTES # (AUTO) 1.1 /CMM (0.1-1.30); MONOCYTES % (AUTO) 12.9 % (2.0-12.0); NEUTROPHILS # (AUTO) 5.7 /CMM (1.8-8.9); NEUTROPHILS % (AUTO) 66.3 % (43.0-81.0); PLATELET COUNT (AUTO) 584 /CMM (150-450); RED BLOOD CELL COUNT(AUTO) 2.44 MIL/uL (4.5-6.0); WHITE BLOOD COUNT (AUTO) 8.5 K/uL (4.3-11.0)
--- NOTE | 2020-04-26 07:30 | NUR ---
CLERK STENOGRAPHER NOTES PT IN BED, RESTING, NO COMPLAINT OF PAIN, ABLE TO MAKE NEEDS KNOWN, CALL LIGHT WITHIN REACH, KEPT WARM AND COMFORTABLE IN BED.
[2020-04-26 08:00] VITALS: BP 138/90
[2020-04-26] MEDS: ACETYLCYSTEINE 10% SOLN 400 MG/4 ML VIAL NEB SCH ×3 (08:03→22:46)
[2020-04-26] MEDS: CARVEDILOL 6.25 MG TABLET PO SCH ×2 (08:25→16:54)
[2020-04-26] MEDS: PANTOPRAZOLE 40 MG TABLET.DR PO SCH (08:25)
[2020-04-26] MEDS: LOSARTAN POTASSIUM 25 MG TABLET PO SCH ×2 (08:25→16:55)
[2020-04-26] MEDS: FUROSEMIDE 40 MG TABLET PO SCH ×2 (08:25→16:54)
[2020-04-26] MEDS: SPIRONOLACTONE 25 MG TABLET PO SCH (08:26)
[2020-04-26] MEDS: PROSOURCE / PROSTAT (PYXIS) 30 ML UDC GT SCH ×3 (08:27→16:55)
[2020-04-26] MEDS: HYDROGEL DRESSING 90 GM TUBE TP SCH (08:46)
[2020-04-26] MEDS: SILVER SULFADIAZINE CREAM 25 GM TUBE TP SCH (08:46)
[2020-04-26] MEDS: HEPARIN SODIUM, PORCINE 5000 UNITS/1 ML VIAL SQ SCH ×2 (08:47→21:10)
--- NOTE | 2020-04-26 08:48 | NUR ---
PLANT AND MAINTENANCE TECHNICIAN NOTES HEPARIN NOT GIVEN, LOW H/H.
[2020-04-26 16:00] VITALS: BP 141/88
[2020-04-26] MEDS: GENTAMICIN 100 MG in IV D5W 100 ML IV PRN (16:33)
--- NOTE | 2020-04-26 18:11 | NUR ---
FARMWORKER RICE NOTES PT IN BED, RESTING, DENIES PAIN OR ANY DISCOMFORT, NO SOB, WOULD TREATMENT AND DRESSING CHANGE DONE, GTF INFUSING WELL, TOLERATING WELL, CALL LIGHT WITHIN REACH, PM MEDS GIVEN, PM CARE RENDERED, REPOSITIONED FOR COMFORT, ALL NEEDS ATTENDED.
--- NOTE | 2020-04-26 19:10 | NUR ---
CRM TECHNICAL LEAD NOTE RECEIVED PT IN BED, RESTING. A/O X 4. MOUTHS WORDS. ON TRACH VENT SETTINGS ORDERED. TOLERATING WELL. SATURATION AT 98%. TELE MONITOR READS SR TO ST 100s. WITH OCCASIONAL ST DEPRESSION. G TUBE ON PLACE PATENT, RESIDUAL CHECKED WITH ONGOING NEPHRO OF 45ML/HR. TOLERATING WELL. SONY MIDLINE PATENT AND FLUSHED. RIJ HD CATH. WITH PRAKASH DRAINING YELLOW URINE. RECTAL TUBE IN PLACE. SAFETY MEASURES IN PLACE. BL SOFT WRIST RESTRAINTS IN PLACE. CIRCULATION CHECKED. WILL CONTINUE TO MONITOR.
[2020-04-26 20:00] VITALS: BP 144/75
--- NOTE | 2020-04-26 20:10 | NUR ---
RT NOTE PT TRANSFERRED FROM TELE TO 116-T1. VENT PLUGGED IN RED OUTLET. AMBU BAG AND SPARE TRACH NOTED HOB. NO SOB OR DISTRESS NOTED. WILL CONTINUE TO MONITOR
--- NOTE | 2020-04-26 20:56 | NUR ---
PATIENT RECEIVED ON TRACH TO VENT WITH SETTINGS OF CPAP 5 PS 20 40%. SUCTIONED FOR MINIMAL, THICK, WHITE SECRETIONS. GIVEN IN-LINE TREATMENT WITH NO ADVERSE REACTIONS. AMBU BAG AT BEDSIDE. VENT AND PULSE OXIMETER ALARMS AUDIBLE AND VISIBLE. VENT PLUGGED INTO RED OUTLET Addendum: 04/26/20 at 205 by KRISTY LOFTON RT Amended: Links added.
[2020-04-26] MEDS ORDERED: VANCOMYCIN 1 GM in IV D5W 250ml IV ONE (21:00)
[2020-04-26] MEDS: NEPRO 1,000 ML BOTTLE GT PRN (21:35)
[2020-04-27] VITALS: BP 139/90
[2020-04-27 04:00] VITALS: BP 133/93
[2020-04-27] MEDS: METRONIDAZOLE 500 MG TABLET PO SCH ×2 (04:24→13:42)
--- NOTE | 2020-04-27 06:38 | NUR ---
COLLECTIONS AGENT NOTE PT IS CURRENTLY AWAKE, RESTING IN BED. VSS. NO DISTRESS OR SOB NOTED. TOLERATING VENT SETTINGS WELL. SATURATION IS 100. TELE MONITOR SHOWS NSR 97 WITH INVERTED TWAVES. SKIN CLEAN AND DRY. WOUND TREATMENTS PERFORMED PER MD ORDERS. SAFETY PRECAUTIONS IN PLACE. WILL ENDORSE TO ONCOMING NURSE FOR CONTINUATION OF CARE. Addendum: 04/27/20 at 0736 by FELICITA HARLEY RN PLAN OF CARE TO CHANGE VENT SETTING PRESSURE SUPPORT VOLUME FROM 15 TO 12. TRACH CARE WAS PERFORMED; TRACH DRESSING CHANGE, TRACH TIE CHANGED.
[2020-04-27 06:54] LABS: BASOPHILS # (AUTO) 0.1 /CMM (0.0-0.2); BASOPHILS % (AUTO) 0.6 % (0.0-2.0); EOSINOPHILS % (AUTO) 3.3 % (0.0-6.0); HEMATOCRIT 23 % (39-51); HEMOGLOBIN 7.6 g/dL (13.5-17.5); LYMPHOCYTES # (AUTO) 1.4 /CMM (0.8-4.8); LYMPHOCYTES % (AUTO) 17.4 % (20.0-44.0); MEAN CORPUSCULAR HGB CONC 33 g/dl (31.0-36.0); MEAN CORPUSCULAR VOLUME 92 fL (80-96); MONOCYTES # (AUTO) 1.1 /CMM (0.1-1.30); MONOCYTES % (AUTO) 12.9 % (2.0-12.0); NEUTROPHILS # (AUTO) 5.5 /CMM (1.8-8.9); NEUTROPHILS % (AUTO) 65.8 % (43.0-81.0); PLATELET COUNT (AUTO) 563 /CMM (150-450); RED BLOOD CELL COUNT(AUTO) 2.52 MIL/uL (4.5-6.0); WHITE BLOOD COUNT (AUTO) 8.3 K/uL (4.3-11.0)
[2020-04-27 07:16] LABS: CALCIUM, SERUM 7.9 mg/dL (8.5-10.1); MAGNESIUM 2.5 mg/dL (1.8-2.4); PHOSPHORUS 4.9 mg/dL (2.5-4.9); POTASSIUM 3.4 mmol/L (3.5-5.1)
[2020-04-27 07:21] LABS: CREATININE 7.5 mg/dL (0.6-1.3)
--- NOTE | 2020-04-27 07:30 | NUR ---
RN OPENING NOTES Patient in bed, A/Ox4, on [facility] ventilator with settings of CPAP, with PS 12, PEEP+5, 40% of O2 40%, SPO2 is 100%, tolerating well, with no s/sx of resp distress noted at this time, all alarms checked and working, Tele-monitor shows ST of 94, Patient is able to make his needs know by writing on paper and moaning words, cooperative and pleasant. Left upper arm PICC line noted, intact and clean,R/J HD CATH noted in place, intact. Patient diet status in NPO at this moment, wll clarify with physician and follow up. G tube in place, dressing is intact. Safety measures in place, call light in reach, HOB elevated, alarms checked, Side rails up X2, katlin cont to monitor closely
[2020-04-27 08:00] VITALS: BP 140/98
[2020-04-27] MEDS: ACETYLCYSTEINE 10% SOLN 400 MG/4 ML VIAL NEB SCH ×2 (08:00→15:49)
[2020-04-27] MEDS ORDERED: PANTOPRAZOLE 40 MG/PACK PACK NG SCH (08:20)
[2020-04-27] MEDS: SPIRONOLACTONE 25 MG TABLET PO SCH (09:00)
[2020-04-27] MEDS: LOSARTAN POTASSIUM 25 MG TABLET PO SCH ×2 (09:00→17:01)
[2020-04-27] MEDS: FUROSEMIDE 40 MG TABLET PO SCH ×2 (09:00→17:00)
[2020-04-27] MEDS: CARVEDILOL 6.25 MG TABLET PO SCH ×2 (09:00→17:00)
[2020-04-27] MEDS: PROSOURCE / PROSTAT (PYXIS) 30 ML UDC GT SCH ×3 (09:00→17:01)
[2020-04-27] MEDS: HEPARIN SODIUM, PORCINE 5000 UNITS/1 ML VIAL SQ SCH (09:00)
--- NOTE | 2020-04-27 09:00 | NUR ---
Paged DR Metzger about patient possible PEG tube placement, waiting for respond
--- NOTE | 2020-04-27 09:00 | NUR ---
Holding meds per NPO order and possible PEG placement, clarifying orders with
[2020-04-27] MEDS: HYDROGEL DRESSING 90 GM TUBE TP SCH (09:22)
[2020-04-27] MEDS: SILVER SULFADIAZINE CREAM 25 GM TUBE TP SCH (09:22)
--- NOTE | 2020-04-27 10:35 | NUR ---
Recived call from pharmacy about K level of 3.4. notified
--- NOTE | 2020-04-27 11:30 | NUR ---
Swallow evaluation therapist at bed site with RT
[2020-04-27 12:00] VITALS: BP 155/101
--- NOTE | 2020-04-27 12:30 | NUR ---
Spoke with Dr Castellanos took order to resume feeding same as G-TUBE @45cc/hr, Nephro , CONFIRMED
--- NOTE | 2020-04-27 13:20 | NUR ---
SPOKE WITH MARTIN FRIED FUSION OPERATOR, PATIENT WILL BE DISCHARGE TODAY AT 1800, WILL GO TO [facility] [phone], WILL FOLLOW UP WITH DISCHARGE
[2020-04-27] MEDS ORDERED: APIXABAN 5 MG TABLET PO SCH (17:00)
[2020-04-27 17:01] VITALS: BP 144/99
--- NOTE | 2020-04-27 18:15 | NUR ---
Discharge note Patient in bed, same vent settings, tolerating well, all wound dressings changed, medications are given, VS temperature:98.6. 135/98, SPO2 is 100%, Light cath in lace, central line dressing changed, safety measures implemented in lowest position, side rails up,
--- NOTE | 2020-04-27 18:26 | NUR ---
Transportation team present at bed site, [facility] unit 76: Sury ASHBY and Lacho, patient ID and final destination confirmed, paperwork signed, patient is safe and ready to be transfer. All ID bands removed.
[2020-04-30] MEDS ORDERED: SULF1TAB47 PO (14:41)
== END 2020-04-27 18:31 | DRG 793 ==
LOC: ICU 04-17 00:41 → TELE 04-19 18:56 → TELE1 04-26 19:31
PROVIDERS: ADMIT Student in an Organized Health Care Education/Training Program; ATTEND Student in an Organized Health Care Education/Training Program
PROC: 5A1D70Z Performance of Urinary Filtration, Intermittent, Less than 6 Hours Per Day (ICD-10-PCS; 2020-04-17)
PROC: 0KBS0ZZ Excision of Right Lower Leg Muscle, Open Approach (ICD-10-PCS; principal; 2020-04-19)
PROC: 30233K1 Transfusion of Nonautologous Frozen Plasma into Peripheral Vein, Percutaneous Approach (ICD-10-PCS; 2020-04-21)
PROC: 5A1955Z Respiratory Ventilation, Greater than 96 Consecutive Hours (ICD-10-PCS; 2020-04-21)
PROC: 30233P1 Transfusion of Nonautologous Frozen Red Cells into Peripheral Vein, Percutaneous Approach (ICD-10-PCS; 2020-04-21)
PROC: 0W9B3ZZ Drainage of Left Pleural Cavity, Percutaneous Approach (ICD-10-PCS; 2020-04-22)
PROC: 5A09357 Assistance with Respiratory Ventilation, Less than 24 Consecutive Hours, Continuous Positive Airway Pressure (ICD-10-PCS; 2020-04-26)
DX: T81.89XA Other complications of procedures, not elsewhere classified, initial encounter (principal); I25.10 Atherosclerotic heart disease of native coronary artery without angina pectoris; E78.5 Hyperlipidemia, unspecified; Z87.891 Personal history of nicotine dependence; Z88.0 Allergy status to penicillin; R13.10 Dysphagia, unspecified; Z99.11 Dependence on respirator [ventilator] status; I21.4 Non-ST elevation (NSTEMI) myocardial infarction; I50.23 Acute on chronic systolic (congestive) heart failure; D68.59 Other primary thrombophilia; N17.0 Acute kidney failure with tubular necrosis; M62.82 Rhabdomyolysis; D64.9 Anemia, unspecified; I42.0 Dilated cardiomyopathy; R74.0 Nonspecific elevation of levels of transaminase and lactic acid dehydrogenase [LDH]; G93.41 Metabolic encephalopathy; J96.10 Chronic respiratory failure, unspecified whether with hypoxia or hypercapnia; J18.9 Pneumonia, unspecified organism; D72.829 Elevated white blood cell count, unspecified; J98.11 Atelectasis; J90 Pleural effusion, not elsewhere classified; E66.9 Obesity, unspecified; Z68.33 Body mass index [BMI] 33.0-33.9, adult; R19.7 Diarrhea, unspecified; J95.01 Hemorrhage from tracheostomy stoma; Y83.9 Surgical procedure, unspecified as the cause of abnormal reaction of the patient, or of later complication, without mention of misadventure at the time of the procedure; Y92.89 Other specified places as the place of occurrence of the external cause; S81.801A Unspecified open wound, right lower leg, initial encounter; D63.8 Anemia in other chronic diseases classified elsewhere; I25.2 Old myocardial infarction; I25.5 Ischemic cardiomyopathy; Z59.0 Homelessness; D62 Acute posthemorrhagic anemia; I12.0 Hypertensive chronic kidney disease with stage 5 chronic kidney disease or end stage renal disease; N18.6 End stage renal disease
CPT/HCPCS: 31720; 36415; 36600; 71045-TC; 76604-TC; 80048-TC; 80053-TC; 80170-TC; 80202-TC; 82728-TC; 82803-TC; 83540-TC; 83735-TC; 84100-TC; 84155-TC; 84478-TC; 85025-TC; 85385-TC; 85730-TC; 86706; 86850-TC; 86921-TC; 87070-TC; 87075-TC; 87102-TC; 87340; 88108-TC; 88305-TC; 88312-TC; 89051-TC; 90935-TC; 92526; 92611-TC; 93307-TC; 94003-TC; 94760-TC; 94762-TC; 94799-TC; 97530-TC; 99082-TC; A4216; A6248; A6253; A6403; A7526; G0378; J1580; J1644; J1956; J2060; J2270; J2597; J3370; J3490; J7030; J7050; J7060; P9016-BL; P9017-BL

== ENCOUNTER 2020-04-29 15:02 | Inpatient (IN) | payer OTHER ==
[~2020-04-29] VITALS: Ht 182.9 cm; Wt 113.4 kg
--- NOTE | 2020-04-29 15:08 | NUR ---
PT REC'D TO VIA EMS PT NEEDS DIALYSIS TODAY WAS NOT ON THE SCHEDULE VENT TRACH RT GROIN PORT PRAKASH CATH MAKING URINE . G TUBE SITE GIOOD NO REDNESS NOTED
--- NOTE | 2020-04-29 15:10 | NUR ---
PT SEEN AND EXAMINED BY
--- NOTE | 2020-04-29 15:23 | NUR ---
male trached pt alert and awake able to fallow commands. pt placed on vent settings from previous facility. alarms set and audible. zero resp. distress noted at this time. ambu bag at head. small pale yellow sputum. b/s clear post suctioning Addendum: 04/29/20 at 1527 by FRED WOMACK RT Amended: Links added.
--- NOTE | 2020-04-29 15:30 | NUR ---
MOVE SHEET TURNED IN BY CARE COORDINATOR.
--- NOTE | 2020-04-29 15:38 | NUR ---
IV STARTED 20 LEFT HAND LABS DRAWN SEN TO LAB UA SENT TO LAB
[2020-04-29 15:45] LABS: BASOPHILS # (AUTO) 0.1 /CMM (0.0-0.2); BASOPHILS % (AUTO) 1.1 % (0.0-2.0); EOSINOPHILS % (AUTO) 3.1 % (0.0-6.0); HEMATOCRIT 26 % (39-51); HEMOGLOBIN 8.2 g/dL (13.5-17.5); LYMPHOCYTES # (AUTO) 1.5 /CMM (0.8-4.8); LYMPHOCYTES % (AUTO) 17.5 % (20.0-44.0); MEAN CORPUSCULAR HGB CONC 32 g/dl (31.0-36.0); MEAN CORPUSCULAR VOLUME 93 fL (80-96); MONOCYTES % (AUTO) 11.2 % (2.0-12.0); NEUTROPHILS # (AUTO) 5.9 /CMM (1.8-8.9); NEUTROPHILS % (AUTO) 67.1 % (43.0-81.0); PLATELET COUNT (AUTO) 581 /CMM (150-450); RED BLOOD CELL COUNT(AUTO) 2.73 MIL/uL (4.5-6.0); WHITE BLOOD COUNT (AUTO) 8.7 K/uL (4.3-11.0)
[2020-04-29 15:52] LABS: APPEARANCE,URINE CLOUDY (CLEAR); BILIRUBIN,URINE NEGATIVE (NEGATIVE); BLOOD, URINE LARGE Ery/uL (NEGATIVE); COLOR,URINE YELLOW (YELLOW); KETONES,URINE NEGATIVE (NEGATIVE); LEUKOCYTE ESTERASE ,URINE TRACE (NEGATIVE); NITRITE, URINE NEGATIVE (NEGATIVE); PROTEIN,URINE 30 mg/dl (NEGATIVE); UGLUCOSE NEGATIVE (NEGATIVE); UROBILINOGEN,URINE 0.2 EU/dL (0.2)
--- NOTE | 2020-04-29 15:54 | NUR ---
TURNED IN MOVE SHEET
[2020-04-29 16:01] LABS: CALCIUM, SERUM 8.3 mg/dL (8.5-10.1); CREATININE 7.3 mg/dL (0.6-1.3); POTASSIUM 3.5 mmol/L (3.5-5.1)
[2020-04-29 16:05] LABS: RBC,URINE 81-100 /HPF (0-2)
[2020-04-29 16:06] LABS: BACTERIA,URINE Few /HPF (None Seen); SQUAMOUS EPITHELIAL CELL,UR Few /HPF (None Seen); URINE AMORPHOUS URATE Moderate /HPF (None Seen)
[2020-04-29 16:09] LABS: ALBUMIN 2.1 g/dL (3.4-5.0); BILIRUBIN,DIRECT 0.3 mg/dL (0.0-0.2); BILIRUBIN,TOTAL 0.5 mg/dL (0.2-1.0); TOTAL PROTEIN, SERUM 7.3 g/dL (6.4-8.2)
--- NOTE | 2020-04-29 16:23 | NUR ---
SPOKE WITH ART, MARKER HAND FOR MORE CLINICAL INFORMATION.
[2020-04-29 16:42] LABS: EOSINOPHILS % (MANUAL) 11 % (0-4); LYMPHOCYTES % (MANUAL) 24 % (16-48); MONOCYTES % (MANUAL) 6 % (0-11.0); NEUTROPHILS % (MANUAL) 59 (42-76)
--- NOTE | 2020-04-29 16:49 | NUR ---
AUTHORIZATION RECEIVED FROM OPERATIONS/DISPATCH TO STAY
--- NOTE | 2020-04-29 16:50 | NUR ---
NURSING SUP CALLED FOR ROOM ASSISGNMENT.
--- NOTE | 2020-04-29 16:52 | NUR ---
PAGED DR.SUMAN SHAH.
[2020-04-29] MEDS ORDERED: FUROSEMIDE 40 MG/4 ML VIAL IV ONE (17:00)
[2020-04-29] MEDS ORDERED: FUROSEMIDE 40 MG/4 ML VIAL ONE (17:03)
--- NOTE | 2020-04-29 17:10 | NUR ---
MED-SURGE BED 200
--- NOTE | 2020-04-29 17:20 | NUR ---
PRAKASH BAG 1300 OUTPUT IV LASIX 40 MG IVP PER MD ORDER
--- NOTE | 2020-04-29 17:38 | NUR ---
REPORT CALLED TO FLOOR PT STABLE FOR TRANSFER TO FLOOR
--- NOTE | 2020-04-29 18:10 | NUR ---
PT TRANSFERRED FROM ER TO MED SURG, VIA AMBU BAG @ 15 LPM. MERISSA WELL. PLACED ON [facility] VENTILATOR WITH CHARTED VENT SETTINGS. VENT PLUGGED INTO RED OUTLET. TRACH PATENT AND SECURED. KEMAL AND XAVIER SUH AT [facility]. NO SOB NOTED. Addendum: 04/29/20 at 1812 by AMI SAINI RT Amended: Links added.
--- NOTE | 2020-04-29 18:11 | NUR ---
rn notes patient received on a ventilator, no sob noted, denies pain at this time. On a trach. Patient has belongings with him. Gates, Tiawri ventilator with tubing, suction machine.
--- NOTE | 2020-04-29 19:28 | NUR ---
CUSTOMER EXPERIENCE SPECIALIST OPENING NOTES PATIENT AWAKE IN BED. A/OX3; ABLE TO VERBALIZE NEEDS. VENT DEPENDENT; TOLERATING SETTINGS WELL; NO S/S OF ACUTE RESPIRATORY DISTRESS; BREATHING IS EVEN AND UNLABORED. NO C/O PAIN AT THIS TIME. TELE MONITOR READING NSR, HEART RATE 92. PRAKASH CATH PRESENT; DRAINING CLEAR YELLOW URINE. GTUBE PRESENT; NO FEEDING RUNNING AT THIS TIME. IV PRESENT ON LEFT HAND, SIZE 20, INTACT & PATENT, HEP LOCKED. WOUND PRESENT ON RIGHT LEG; NO ADMISSION PHOTOS FOUND IN CHART. SAFETY MEASURES IN PLACE AND PATIENT'S NEEDS MET. BED LOCKED, ALARM ON, HOB ELEVATED, SIDE RAILS X3, CALL LIGHT WITHIN REACH. WILL CONTINUE TO MONITOR.
--- NOTE | 2020-04-29 19:35 | NUR ---
ELECTRO MECHANICAL SOLAR TECHNICIAN NOTES NO ADMITTING ORDERS IN PLACE. NOTIFIED AVE LYNNE. AWAITING RESPONSE.
--- NOTE | 2020-04-29 19:39 | NUR ---
DIRECTOR DESIGN NOTES RECEIVED RESPONSE FROM AVE LYNNE; WILL INPUT ADMITTING ORDERS.
[2020-04-29 19:53] VITALS: BP 141/96
[2020-04-29 19:54] VITALS: BP 141/96
[2020-04-29 20:40] VITALS: BP 141/96
[2020-04-29] MEDS ORDERED: NITROGLYCERIN 0.4 MG/TAB BOTTLE SL PRN (21:30)
[2020-04-29] MEDS ORDERED: Z GUARD REMEDY 2 OZ OINT TP PRN ×2 (21:30→22:00)
[2020-04-29] MEDS ORDERED: HYDROCODONE/APAP 5/325MG TABLET GT PRN (21:30)
[2020-04-29] MEDS ORDERED: NEPRO 1,000 ML BOTTLE GT SCH (22:00)
[2020-04-29] MEDS ORDERED: ONDANSETRON HCL/PF 4 MG/2 ML VIAL IVP PRN (22:00)
[2020-04-29] MEDS: SULFAMETH/TRIMETH 800/160 MG 1 UDTAB TABLET GT SCH (22:13)
[2020-04-29] MEDS: MORPHINE SULFATE INJ 2 MG/ML DISP.SYRIN IV PRN (22:33)
[2020-04-30] VITALS (8 sets, daily range): BP systolic 124–174; BP diastolic 77–93
--- NOTE | 2020-04-30 00:43 | NUR ---
MANAGER SCIENCE NOTES PATIENT REFUSING TO WEAR CONTINUOUS PULSE OX; KEEPS REMOVING TAPE OFF FINGER. EXPLAINED TO PATIENT IMPORTANCE OF PULSE OX; HOWEVER PATIENT STILL REFUSES. NO S/S OF ACUTE RESPIRATORY DISTRESS NOTED; BREATHING IS EVEN AND UNLABORED; TOLERATING VENT SETTING WELL. SPO2 WITH BP MACHINE 100%. WILL CONTINUE TO MONITOR.
[2020-04-30] MEDS: MORPHINE SULFATE INJ 2 MG/ML DISP.SYRIN IV PRN (03:11)
--- NOTE | 2020-04-30 03:45 | NUR ---
APIARIST NOTES PATIENT REMOVED IV ON LEFT HAND. NEW IV STARTED ON LEFT WRIST SIZE 20, INTACT & PATENT, HEP LOCKED.
[2020-04-30] MEDS ORDERED: NEPRO 1,000 ML BOTTLE GT PRN ×2 (06:30→13:30)
--- NOTE | 2020-04-30 07:06 | NUR ---
U.S. COMMISSIONER CLOSING NOTES PATIENT AWAKE IN BED. NO ADVERSE EVENTS DURING SHIFT. A/OX3. TOLERATING VENT SETTINGS WELL; NO S/S OF ACUTE RESPIRATORY DISTRESS; BREATHING IS EVEN AND UNLABORED. NO C/O PAIN AT THIS TIME. TELE MONITOR READING NSR, HEART RATE 99. PRAKASH CATH REMAINS INTACT AND PATENT. GTUBE FEEDING WITH NEPRO RUNNING AT 60 ML/HR;TOLERATING WELL. IV PRESENT ON LEFT WRIST, SIZE 20, INTACT & PATENT, HEP LOCKED. SAFETY MEASURES IN PLACE AND PATIENT'S NEEDS MET. BED LOCKED, ALARM ON, HOB ELEVATED, SIDE RAILS X3, CALL LIGHT WITHIN REACH. ENDORSED TO DAY SHIFT RN PLAN OF CARE.
--- NOTE | 2020-04-30 07:21 | NUR ---
RN NOTES RECEIVED PATIENT IN BED RESTING COMFORTABLY IN MODERATE HIGH BACK REST. A/OX3. TOLERATING VENT SETTINGS WELL; NO S/S OF ACUTE RESPIRATORY DISTRESS NOTED AT THIS TIME; ON TELE MONITOR READING SR, HEART RATE 99. NOTED WITH PRAKASH CATH REMAINS INTACT AND PATENT. GTUBE FEEDING WITH NEPRO RUNNING AT 60 ML/HR;TOLERATING WELL. IV PRESENT ON LEFT WRIST, SIZE 20, INTACT & PATENT, HEP LOCKED. SAFETY MEASURES IN PLACE. BED LOCKED, ALARM ON, SIDE RAILS X3, CALL LIGHT WITHIN REACH. WILL CONTINUE TO MONITOR.
[2020-04-30 08:14] LABS: THYROID STIMULATING HORMONE 3.591 uIU/mL (0.358-3.74)
[2020-04-30 08:15] LABS: CALCIUM, SERUM 8.2 mg/dL (8.5-10.1); MAGNESIUM 2.4 mg/dL (1.8-2.4); PHOSPHORUS 5.6 mg/dL (2.5-4.9); POTASSIUM 3.1 mmol/L (3.5-5.1)
[2020-04-30 08:20] LABS: BASOPHILS # (AUTO) 0.1 /CMM (0.0-0.2); BASOPHILS % (AUTO) 0.8 % (0.0-2.0); EOSINOPHILS % (AUTO) 3.7 % (0.0-6.0); HEMATOCRIT 23 % (39-51); HEMOGLOBIN 7.6 g/dL (13.5-17.5); LYMPHOCYTES # (AUTO) 1.6 /CMM (0.8-4.8); MEAN CORPUSCULAR HGB CONC 33 g/dl (31.0-36.0); MEAN CORPUSCULAR VOLUME 92 fL (80-96); MONOCYTES # (AUTO) 0.9 /CMM (0.1-1.30); MONOCYTES % (AUTO) 10.3 % (2.0-12.0); NEUTROPHILS # (AUTO) 5.7 /CMM (1.8-8.9); NEUTROPHILS % (AUTO) 66.2 % (43.0-81.0); PLATELET COUNT (AUTO) 581 /CMM (150-450); RED BLOOD CELL COUNT(AUTO) 2.53 MIL/uL (4.5-6.0); WHITE BLOOD COUNT (AUTO) 8.6 K/uL (4.3-11.0)
[2020-04-30] MEDS: SULFAMETH/TRIMETH 800/160 MG 1 UDTAB TABLET GT SCH (08:39)
[2020-04-30] MEDS: FUROSEMIDE 40 MG TABLET GT SCH ×2 (08:40→16:13)
[2020-04-30] MEDS: CARVEDILOL 6.25 MG TABLET GT SCH ×2 (08:40→16:14)
[2020-04-30] MEDS: LOSARTAN POTASSIUM 25 MG TABLET GT SCH ×2 (08:40→16:13)
[2020-04-30] MEDS ORDERED: RIVAROXABAN 10 MG TABLET GT SCH (09:00)
[2020-04-30] MEDS ORDERED: ASPIRIN 81 MG TAB.CHEW GT SCH (09:00)
--- NOTE | 2020-04-30 10:00 | NUR ---
RN NOTES DIALYSIS NURSE ON UNIT, PATIENT WILL BE DIALYZE AT BEDSIDE, CONSENT FOR HD FROM DAUGHTER VIA PHONE, WITNESS BY PORFIRIO ARRINGTON, NO SIGNS OF DISTRESS, WILL CONTINUE TO MONITOR.
[2020-04-30] MEDS ORDERED: SULF1TAB47 PO (14:41)
--- NOTE | 2020-04-30 19:08 | NUR ---
RN DISCHARGED NOTES PATIENT DISCHARGED IN STABLE CONDITION. A/O X3. ABLE TO MAKE NEEDS KNOWN. V/S TAKEN, STABLE AND RECORDED. IV ACCESS REMOVED AND APPLIED PRESSURE DRESSING. SKIN ASSESSMENT DONE AND PICTURES TAKEN LAST NIGHT, FILED ON CHART. NAME ARM BAND REMOVED. ALL BELONGINGS CHECKED AND SIGNED. HEALTH TEACHINGS/DISCHARGED INSTRUCTIONS GIVEN AND VERBALIZED UNDERSTANDING. PATIENT LEFT UNIT VIA GURNEY WITH 2 AMBULANCE STAFF WITH NO ACUTE SIGNS OF DISTRESS. CHARGE NURSE AWARE OF DISCHARGED.
[2020-04-30] MEDS ORDERED: SULFAMEHOX/TRIMETH 200-40MG/ 5 ML UDC GT SCH (21:00)
== END 2020-04-30 19:20 | DRG 194 ==
LOC: ER 15:02 → TELE2 17:13
PROVIDERS: ADMIT Nurse Practitioner Acute Care; ATTEND Nurse Practitioner Acute Care
PROC: 5A1935Z Respiratory Ventilation, Less than 24 Consecutive Hours (ICD-10-PCS; principal; 2020-04-29)
PROC: 5A1D70Z Performance of Urinary Filtration, Intermittent, Less than 6 Hours Per Day (ICD-10-PCS; 2020-04-30)
DX: I13.2 Hypertensive heart and chronic kidney disease with heart failure and with stage 5 chronic kidney disease, or end stage renal disease (principal); N18.6 End stage renal disease; I50.42 Chronic combined systolic (congestive) and diastolic (congestive) heart failure; Z99.2 Dependence on renal dialysis; E78.5 Hyperlipidemia, unspecified; I25.2 Old myocardial infarction; I25.10 Atherosclerotic heart disease of native coronary artery without angina pectoris; I42.0 Dilated cardiomyopathy; D63.1 Anemia in chronic kidney disease; J96.10 Chronic respiratory failure, unspecified whether with hypoxia or hypercapnia; Z99.11 Dependence on respirator [ventilator] status; Z93.0 Tracheostomy status; Z93.1 Gastrostomy status; R13.10 Dysphagia, unspecified; N17.9 Acute kidney failure, unspecified; I73.9 Peripheral vascular disease, unspecified; D64.9 Anemia, unspecified; Z88.0 Allergy status to penicillin; Z98.62 Peripheral vascular angioplasty status; Z79.82 Long term (current) use of aspirin; Z79.01 Long term (current) use of anticoagulants; Z79.899 Other long term (current) drug therapy; Z87.891 Personal history of nicotine dependence; Z95.1 Presence of aortocoronary bypass graft; G93.41 Metabolic encephalopathy; Z91.15 Patient's noncompliance with renal dialysis; Z86.718 Personal history of other venous thrombosis and embolism; D62 Acute posthemorrhagic anemia
CPT/HCPCS: 31720; 36415; 71045-TC; 80048-TC; 80061-TC; 80076-TC; 81000-TC; 83540-TC; 83690-TC; 83735-TC; 84100-TC; 84443-TC; 84484-TC; 85025-TC; 85730-TC; 87081-TC; 87086-TC; 90935-TC; 94002-TC; 94003-TC; 94760-TC; 94799-TC; 99082-TC; A6253; G0378; J1940; J2270; U0003-CS

== ENCOUNTER 2020-05-18 17:19 | Inpatient (IN) | payer OTHER ==
[~2020-05-18 17:19] MED LIST changes: +SULF1TAB47 PO
[2020-05-18] MEDS ORDERED: MAGNESIUM HYDROXIDE 30 ML UDC GT PRN (19:30)
[2020-05-18] MEDS ORDERED: Z GUARD REMEDY 2 OZ OINT TP PRN (19:30)
[2020-05-18] MEDS ORDERED: HYDROCODONE/APAP 5/325MG TABLET PO PRN (19:30)
[2020-05-18] MEDS ORDERED: MAG HYDROX/AL HYDROX/SIMETH 30 ML UDC PO PRN (19:30)
[2020-05-18] MEDS ORDERED: ACETAMINOPHEN 325 MG TABLET PO PRN (19:30)
[2020-05-18] MEDS ORDERED: ONDANSETRON HCL/PF 4 MG/2 ML VIAL IVP PRN (19:30)
[2020-05-18] MEDS ORDERED: NITROGLYCERIN 0.4 MG/TAB BOTTLE SL PRN (19:30)
[2020-05-18] MEDS ORDERED: MAGNESIUM HYDROXIDE 30 ML UDC PO PRN (19:30)
[2020-05-18] MEDS ORDERED: ONDANSETRON HCL/PF 4 MG/2 ML VIAL IV PRN (19:30)
[2020-05-19] MEDS ORDERED: POTASSIUM CHLORIDE 10 MEQ TABLET.SA GT ONE (01:00)
[2020-05-19] MEDS ORDERED: POTASSIUM CHLORIDE 10 MEQ TABLET.SA PO ONE (02:00)
[2020-05-19] MEDS: SPIRONOLACTONE 25 MG TABLET GT SCH (08:28)
[2020-05-19] MEDS: FUROSEMIDE 40 MG TABLET GT SCH ×2 (08:28→16:48)
[2020-05-19] MEDS: RIVAROXABAN 10 MG TABLET GT SCH (08:31)
[2020-05-19] MEDS: ASPIRIN 81 MG TAB.CHEW GT SCH (08:33)
[2020-05-19] MEDS: LOSARTAN POTASSIUM 25 MG TABLET GT SCH ×2 (08:35→16:51)
[2020-05-19] MEDS: CARVEDILOL 6.25 MG TABLET GT SCH ×2 (08:35→16:50)
[2020-05-20] MEDS: LOSARTAN POTASSIUM 25 MG TABLET GT SCH ×2 (09:00→17:00)
[2020-05-20] MEDS: CARVEDILOL 6.25 MG TABLET GT SCH ×2 (09:00→17:00)
[2020-05-20] MEDS: SPIRONOLACTONE 25 MG TABLET GT SCH (09:00)
[2020-05-20] MEDS: ASPIRIN 81 MG TAB.CHEW GT SCH (09:20)
[2020-05-20] MEDS: FUROSEMIDE 40 MG TABLET GT SCH ×2 (09:20→17:03)
[2020-05-20] MEDS: RIVAROXABAN 10 MG TABLET GT SCH (09:21)
[2020-05-20] MEDS ORDERED: LIDOCAINE 1%-EPI 1:100,000 20 ML VIAL TP ONE (15:00)
== END 2020-05-20 20:10 | DRG 206 ==
DX: T82.41XA Breakdown (mechanical) of vascular dialysis catheter, initial encounter (principal); J96.90 Respiratory failure, unspecified, unspecified whether with hypoxia or hypercapnia; I25.10 Atherosclerotic heart disease of native coronary artery without angina pectoris; Z93.0 Tracheostomy status; Z95.1 Presence of aortocoronary bypass graft; I42.0 Dilated cardiomyopathy; E78.5 Hyperlipidemia, unspecified; I73.9 Peripheral vascular disease, unspecified; Z87.891 Personal history of nicotine dependence; Z88.0 Allergy status to penicillin; Y83.9 Surgical procedure, unspecified as the cause of abnormal reaction of the patient, or of later complication, without mention of misadventure at the time of the procedure; Y92.89 Other specified places as the place of occurrence of the external cause; J44.9 Chronic obstructive pulmonary disease, unspecified; I25.2 Old myocardial infarction; N17.9 Acute kidney failure, unspecified